=== PATIENT | male | born 1970 | race Caucasian/White ===

== ENCOUNTER 2016-12-05 03:12 | Inpatient (IN) | payer OTHER ==
[2016-12-05] VITALS (9 sets, daily range): BP systolic 117–134; BP diastolic 73–86; PULSE 57–70; RESP 18–20; Ht 167.6 cm; Wt 97.9 kg
[~2016-12-05] VITALS: Ht 167.6 cm; Wt 97.9 kg
[2016-12-05] MEDS ORDERED: FENTAnyl 50 MCG/ML VIAL ONE (07:56)
[2016-12-05] MEDS ORDERED: LISI10TA2 PO (08:16)
[2016-12-05] MEDS ORDERED: CARI350T29 PO (08:16)
[2016-12-05] MEDS ORDERED: GABA300C16 PO (08:16)
[2016-12-05] MEDS ORDERED: METF1000 PO (08:16)
[2016-12-05] MEDS ORDERED: KETO10TA PO (08:16)
[2016-12-05] MEDS ORDERED: AMO500 PO (08:16)
[2016-12-05] MEDS ORDERED: GLIM4TAB PO (08:16)
[2016-12-05] MEDS ORDERED: GLIP5TAB13 PO (08:16)
[2016-12-05] MEDS ORDERED: HYDR-902 PO (08:16)
[2016-12-05] MEDS ORDERED: PROPOFOL 20 ML ONE (08:41)
[2016-12-05] MEDS ORDERED: LIDOCAINE 2% (SDV) 5 ML INJ ONE (08:41)
[2016-12-05] MEDS ORDERED: ACETAMINOPHEN 325 MG TAB PO PRN (11:00)
[2016-12-05] MEDS ORDERED: MAGNESIUM HYDROXIDE 30ML CUP PO PRN (11:00)
[2016-12-05] MEDS ORDERED: BISACODYL 10 MG SUPP PR PRN (11:00)
[2016-12-05] MEDS ORDERED: HYDROCODONE/APAP (5/325) TAB PO PRN (11:00)
[2016-12-05] MEDS ORDERED: NITROGLYCERIN (SL) 0.4 MG TAB SL PRN (11:00)
[2016-12-05] MEDS ORDERED: ONDANSETRON 4 MG INJ IV PRN (11:00)
[2016-12-05] MEDS ORDERED: CARISOPRODOL 350 MG TAB PO PRN (11:00)
[2016-12-05] MEDS ORDERED: DOCUSATE SODIUM 100 MG CAP PO PRN (11:00)
[2016-12-05] MEDS ORDERED: NACL 0.9% 3 ML SYG IV SCH (11:00)
[2016-12-05] MEDS ORDERED: ACETAMINOPHEN 650 MG SUPP PR PRN (11:00)
[2016-12-05] MEDS ORDERED: DEXTROSE 50% 50 ML SYRINGE IV PRN ×2 (11:30)
[2016-12-05] MEDS ORDERED: GLUCAGON 1 MG INJ IM PRN (11:30)
[2016-12-05] MEDS ORDERED: GLUCOSE GEL 15 GRAM TUBE PO PRN ×2 (11:30)
[2016-12-05] MEDS ORDERED: GLUCOSE GEL 15 GRAM TUBE BUCCAL PRN (11:30)
[2016-12-05] MEDS: morphine 2 MG INJ IV PRN ×3 (11:34→21:53)
--- NOTE | 2016-12-05 11:59 | HP ---
Date/Time of Note Date/Time of Note DATE: 12/05/16 TIME: 11:49 Assessment/Plan VTE Prophylaxis VTE Prophylaxis Intervention: SCD's Assessment/Plan Chief Complaint/Hosp Course Impression and plan 1. Chest pain. Follow-up on serial troponins. Will get echocardiogram. We will also get radiologist consultation. Rule out ACS. Of note patient does also have history of rib fractures in the left. We will follow-up on x-ray. 2. History of rib fractures on the left work-related. He does follow-up with outpatient physician (workers comp) for this issue. Continue analgesics as needed. 3. Diabetes. Follow-up on A1c. Start insulin regimen. 4. History of dyslipidemia. Follow-up on fasting lipid panel. Admission process 40 minutes Discussed plan of care with Dr. Lara Problems: HPI/ROS Admit Date/Time Admit Date/Time Dec 05, 2016 at 06:41 Hx of Present Illness This is a 46-year-old male with history of diabetes, hypertension, who came to [facility] from outside facility due to insurance issue for reports of chest pain. According to the patient he started to have chest pain starting on December 03, 2016. He reported that it was pressure-like and intense and over his left chest with associated shortness of breath. Reported that his chest pain lasted all day. he said that the pain subsided when he went to sleep. The next day he reportedly had intermittent chest pain at 11 a.m. on December 04, 2016 when he was walking. He then rested and then still stated that he had chest pain on rest. He subsequently went to the hospital for further evaluation. Initial troponin done at [facility] was negative. Patient did report that he had previous work-related accident resulting in rib fractures 2 years ago however was not until 4 months ago he had surgery for this issue. He still follows up with a surgeon as outpatient for this issue and is on analgesics. From outside facility patient did have initial troponin drawn which was negative. He was noted with some transaminitis. He denies any abdominal pain. His drug tox screen was negative except for opiates. He also had some imaging done due to reports of headache with CT scan of his head that showed no acute intracranial findings. He denies any familial history of coronary artery disease. He denies any use of drugs for 5 years. He does report drinking once a month alcohol consumption. He denies any smoking. We will evaluate him for the aformentiond issues. ROS 12 point review of systems obtained and entirely negative except that mentioned in the history of present illness PMH/Family/Social Past Medical History Medical/surgical history 1. Diabetes 2. Essential hypertension 3. History of rib fracture on the left side status post surgical intervention 4 months ago Social History Smoking Status: Former smoker Exam/Review of Systems Vital Signs Vitals Vital Signs Date Time Temp Pulse Resp B/P Pulse Ox O2 Delivery O2 Flow Rate FiO2 12/05/16 11:41 98.2 67 19 134/82 97 12/05/16 07:11 Room Air Exam Constitutional: alert, oriented Psych: nl mood/affect Head: normocephalic Neck: non-tender, supple Respiratory: clear to auscultation, normal air movement Cardiovascular: regular rate and rhythm Gastrointestinal: non-tender, soft Musculoskeletal: nl extremities to inspection, nl gait and stance Extremities: normal pulses Neurological: EXCHANGE OPERATOR II-XII intact, nl mental status, nl speech Medications Medications Current Medications Carisoprodol (Soma) 350 mg QID PRN PO MUSCLE SPASMS; Start 12/05/16 at 11:00 Gabapentin (Neurontin) 300 mg TID PO ; Start 12/05/16 at 13:00 Lisinopril (Zestril) 10 mg DAILY PO ; Start 12/06/16 at 09:00 Ondansetron HCl (Zofran Inj) 4 mg Q6H PRN IV NAUSEA AND/OR VOMITING; Start 12/05 at 11:00 Acetaminophen (Tylenol Tab) 650 mg Q6H PRN PO PAIN LEVEL 1-3 OR FEVER; Start at 11:00 Acetaminophen (Tylenol Supp) 650 mg Q6H PRN [place] PAIN LEVEL 1-3 OR FEVER; Start 12/05/16 at 11:00 Acetaminophen/ Hydrocodone Bitart ([place] (5/325)) 1 tab Q6H PRN PO MODERATE PAIN LEVEL 4-6; Start 12/05/16 at 11:00 Acetaminophen/ Hydrocodone Bitart ([place]n (5/325)) 2 tab Q6H PRN PO SEVERE PAIN LEVEL 7-10; Start 12/05/16 at 11:00 Morphine Sulfate (morphine) 2 mg Q4H PRN IV SEVERE PAIN LEVEL 7-10 Last administered on 12/05/16t 11:34; Admin Dose 2 MG; Start 12/05/16 at 11:00 Docusate Sodium (Colace) 100 mg Q12H PRN PO CONSTIPATION; Start 12/05/16 at 11: 00 Magnesium Hydroxide (Milk Of Mag) 30 ml DAILY PRN PO CONSTIPATION; Start at 11:00 Bisacodyl (Dulcolax Supp) 10 mg DAILY PRN [place] CONSTIPATION; Start 12/05/16 at 11: 00 Pantoprazole (Protonix Iv) 40 mg DAILY@06 IV ; Start 12/06/16 at 06:00 Insulin Glargine (Lantus) 15 unit DAILY@08 SC ; Start 12/06/16 at 08:00 Aspirin (Aspirin) 81 mg DAILY PO ; Start 12/07/16 at 09:00 Metoprolol Tartrate (Lopressor) 12.5 mg BID PO ; Start 12/05/16 at 21:00 Nitroglycerin (Nitroglycerin (Sl Tab) 0.4 Mg) 1 tab Q5M PRN SL CHEST PAIN; Start 12/05/16 at 11:00 Diagnostic Test (Pha) (Accu-Chek) 1 ea 02 XX ; Start 12/06/16 at 02:00 Miscellaneous Information 1 ea NOTE XX ; Start 12/05/16 at 11:30 Glucose (Glutose) 15 gm Q15M PRN PO DECREASED GLUCOSE; Start 12/05/16 at 11:30 Glucose (Glutose) 22.5 gm Q15M PRN PO DECREASED GLUCOSE; Start 12/05/16 at 11:30 Dextrose (D50w Syringe) 25 ml Q15M PRN IV DECREASED GLUCOSE; Start 12/05/16 at 11:30 Dextrose (D50w Syringe) 50 ml Q15M PRN IV DECREASED GLUCOSE; Start 12/05/16 at 11:30 Glucagon (Glucagen) 1 mg Q15M PRN IM DECREASED GLUCOSE; Start 12/05/16 at 11:30 Glucose (Glutose) 15 gm Q15M PRN BUCCAL DECREASED GLUCOSE; Start 12/05/16 at 11: 30 MARIA DEL CARMEN MATHEW Dec 05, 2016 11:59
[2016-12-05] MEDS: INSULIN ASPART [NOVOLOG] 3 ML PEN SC SCH ×5 (12:39→20:31)
[2016-12-05] MEDS: GABAPENTIN 300 MG CAP PO SCH ×2 (12:41→20:28)
[2016-12-05 12:44] LABS: CREATINE KINASE 85 IU/L (23-200)
[2016-12-05] MEDS: ASPIRIN 81 MG TAB PO SCH (12:58)
[2016-12-05 13:00] LABS: CK-MB 0.57 ng/ml (0.0-2.4); TROPONIN-I < 0.012 ng/ml (0.00-0.12)
[2016-12-05 17:36] LABS: CREATINE KINASE 89 IU/L (23-200)
[2016-12-05 17:59] LABS: CK-MB 0.59 ng/ml (0.0-2.4); TROPONIN-I < 0.012 ng/ml (0.00-0.12)
[2016-12-05] MEDS: METOPROLOL 25 MG TAB PO SCH (20:29)
[2016-12-06] VITALS (11 sets, daily range): BP systolic 105–132; BP diastolic 64–84; PULSE 52–89; RESP 18–20
[2016-12-06] MEDS: morphine 2 MG INJ IV PRN ×5 (01:58→21:40)
[2016-12-06] MEDS: ACCU-CHEK XX SCH (02:00)
[2016-12-06] MEDS ORDERED: ACCU-CHEK XX SCH (02:00)
[2016-12-06] MEDS: PANTOPRAZOLE 40 MG INJ IV SCH (05:15)
[2016-12-06 07:25] LABS: ALBUMIN 3.8 g/dl (3.3-4.9); ALBUMIN/GLOBULIN RATIO 1.05; BILIRUBIN,INDIRECT 0.6 mg/dl (0-1.1); BILIRUBIN,TOTAL 0.6 mg/dl (0.2-1.3); CHOL/HDL RATIO 5.6 RATIO; CREATININE 0.89 mg/dl (0.61-1.24); MAGNESIUM 1.7 mg/dl (1.7-2.5); PHOSPHORUS 4.1 mg/dl (2.5-4.9); POTASSIUM 4.2 mmol/L (3.5-5.1); TOTAL PROTEIN 7.4 g/dl (6.1-8.1)
[2016-12-06 07:40] LABS: T3 UPTAKE 36.1 % (23.5-40.5)
[2016-12-06 07:54] LABS: THYROID STIMULATING HORMONE 0.845 MIU/L (0.465-4.680)
[2016-12-06] MEDS: GABAPENTIN 300 MG CAP PO SCH ×3 (08:17→21:52)
[2016-12-06] MEDS: ASPIRIN 81 MG TAB PO SCH (08:18)
[2016-12-06] MEDS: LISINOPRIL 10 MG TAB PO SCH (08:18)
[2016-12-06] MEDS: METOPROLOL 25 MG TAB PO SCH ×2 (08:18→21:53)
[2016-12-06] MEDS: INSULIN GLARGINE [LANtus] 3 ML PEN SC SCH (08:24)
[2016-12-06] MEDS: INSULIN ASPART [NOVOLOG] 3 ML PEN SC SCH ×7 (08:25→21:57)
[2016-12-06 13:46] LABS: CREATINE KINASE 82 IU/L (23-200)
[2016-12-06 14:02] LABS: TROPONIN-I < 0.012 ng/ml (0.00-0.12)
--- NOTE | 2016-12-06 16:06 | PN ---
Date/Time of Note Date/Time of Note DATE: 12/06/16 TIME: 16:05 Assessment/Plan VTE Prophylaxis VTE Prophylaxis Intervention: LMWH Lines/Catheters IV [facility] (from [facility] Saline Lock Assessment/Plan Chief Complaint/Hosp Course 1. Chest pain. Most probably musculoskeletal origin from recent rib fracture. Serial troponins have been negative. Pending 2D echocardiogram. Pending cardiology evaluation. 2. Type 2 diabetes mellitus. Hemoglobin A1c 6.8. Continue sliding scale insulin. 3. Dyslipidemia. Low-cholesterol diet. 4. Hypertension. Continue antihypertensives. 5. Obesity. BMI of 34.8 kg/m. Weight reduction advised. 6. Left rib cage pain secondary to reported work-related injury. Continue pain control. 7. Fluids, electrolytes, and nutrition. Carbohydrate controlled, low- cholesterol diet. 8. DVT prophylaxis. Subcutaneous Lovenox. 9. Gastrointestinal prophylaxis. Proton pump inhibitors. 10. Plan. Serial troponins have been negative. Pending 2D echocardiogram. The patient very adamant that he wants cardiology to evaluate him. Cardiology consult has already been called on 12/05/2016. Pending cardiology evaluation. Case discussed with Dr. Otero. Problems: Subjective 24 Hr Interval Summary Free Text/Dictation Continues to have left chest wall pain. Exam/Review of Systems Vital Signs Vitals Vital Signs Date Time Temp Pulse Resp B/P Pulse Ox O2 Delivery O2 Flow Rate FiO2 12/06/16 15:41 97.4 63 19 112/70 96 12/06/16 11:12 Room Air Intake and Output 12/05/16 12/05/16 12/06/16 14:59 22:59 06:59 Intake Total 900 ml 700 ml Output Total 800 ml Balance 100 ml 700 ml Exam General: Adequately build 46 year-old male lying in bed in no apparent distress. HEENT: Normocephalic, atraumatic. Eyes: Anicteric sclerae, conjunctivae clear. ENT: Nasal septum midline, oral mucosa moist. Neck supple, no JVD noticed. Respiratory: Bilaterally clear breath sounds. No use of accessory muscles of respiration. No adventitious breath sounds. Cardiovascular: S1, S2 heard. No murmurs or gallops. Abdomen: Soft, nontender, and nondistended. Bowel sounds positive in all 4 quadrants. Genitourinary: Deferred. Extremities: No cyanosis, no clubbing, no edema. Peripheral pulses palpable. Neurologic: Cranial nerves II through XII grossly intact. The patient is awake, alert, and oriented. Skin: Normal skin turgor. No skin rashes. Results Result Diagram: 12/06/1631 Results 24 hrs Laboratory Tests Test 12/05/16 17:00 12/05/16 17:48 12/05/16 20:16 12/06/16 06:31 Creatine Kinase 89 Creatine Kinase Index 0.7 Creatinine Kinase MB (Mass) 0.59 Troponin I < 0.012 Bedside Glucose 121 201 Sodium Level 139 Potassium Level 4.2 Chloride Level 103 Carbon Dioxide Level 26 Anion Gap 14 Blood Urea Nitrogen 20 Creatinine 0.89 Glucose Level 152 Hemoglobin A1c 6.8 H Calcium Level 9.0 Phosphorus Level 4.1 Magnesium Level 1.7 Total Bilirubin 0.6 Direct Bilirubin 0.00 Indirect Bilirubin 0.6 Aspartate Amino Transf (AST/SGOT) 45 Alanine Aminotransferase (ALT/SGPT) 75 H Alkaline Phosphatase 59 Total Protein 7.4 Albumin 3.8 Globulin 3.60 H Albumin/Globulin Ratio 1.05 Triglycerides Level 160 H Cholesterol Level 148 LDL Cholesterol, Calculated 90 HDL Cholesterol 26 L Cholesterol/HDL Ratio 5.6 Thyroid Stimulating Hormone (TSH) 0.845 Free Thyroxine Index 2.82 Thyroxine (T4) 7.8 Triiodothyronine (T3) Uptake 36.1 Test 12/06/16 08:09 12/06/16 11:48 12/06/16 12:53 Bedside Glucose 162 180 Creatine Kinase 82 Creatine Kinase Index 0.7 Creatinine Kinase MB (Mass) 0.60 Troponin I < 0.012 Medications Medications Current Medications Carisoprodol (Soma) 350 mg QID PRN PO MUSCLE SPASMS; Start 12/05/16 at 11:00 Gabapentin (Neurontin) 300 mg TID PO Last administered on 12/06/16 12:03; Admin Dose 300 MG; Start 12/05/16 at 13:00 Lisinopril (Zestril) 10 mg DAILY PO Last administered on 12/06/16 08:18; Admin Dose 10 MG; Start 12/06/16 at 09:00 Ondansetron HCl (Zofran Inj) 4 mg Q6H PRN IV NAUSEA AND/OR VOMITING; Start 12/05 at 11:00 Acetaminophen (Tylenol Tab) 650 mg Q6H PRN PO PAIN LEVEL 1-3 OR FEVER; Start at 11:00 Acetaminophen (Tylenol Supp) [address] PAIN LEVEL 1-3 OR FEVER; Start 12/05/16 at 11:00 Acetaminophen/ Hydrocodone Bitart (Weld (5/325)) 1 tab Q6H PRN PO MODERATE PAIN LEVEL 4-6; Start 12/05/16 at 11:00 Acetaminophen/ Hydrocodone Bitart ([place]eld (5/325)) 2 tab Q6H PRN PO SEVERE PAIN LEVEL 7-10; Start 12/05/16 at 11:00 Morphine Sulfate (morphine) 2 mg Q4H PRN IV SEVERE PAIN LEVEL 7-10 Last administered on 12/06/16 14:35; Admin Dose 2 MG; Start 12/05/16 at 11:00 Docusate Sodium (Colace) 100 mg Q12H PRN PO CONSTIPATION; Start 12/05/16 at 11: 00 Magnesium Hydroxide (Milk Of Mag) 30 ml DAILY PRN PO CONSTIPATION; Start at 11:00 Bisacodyl (Dulcolax Supp) [address] CONSTIPATION; Start 12/05/16 at 11: 00 Pantoprazole (Protonix Iv) 40 mg DAILY@06 IV Last administered on 12/06/16 05: 15; Admin Dose 40 MG; Start 12/06/16 at 06:00 Insulin Glargine (Lantus) 15 unit DAILY@08 SC Last administered on 12/06/16 08: 24; Admin Dose 15 UNIT; Start 12/06/16 at 08:00 Metoprolol Tartrate (Lopressor) 12.5 mg BID PO Last administered on 12/06/16 08 :18; Admin Dose 12.5 MG; Start 12/05/16 at 21:00 Nitroglycerin (Nitroglycerin (Sl Tab) 0.4 Mg) 1 tab Q5M PRN SL CHEST PAIN; Start 12/05/16 at 11:00 Diagnostic Test (Pha) (Accu-Chek) 1 ea 02 XX ; Start 12/06/16 at 02:00 Miscellaneous Information 1 ea NOTE XX ; Start 12/05/16 at 11:30 Glucose (Glutose) 15 gm Q15M PRN PO DECREASED GLUCOSE; Start 12/05/16 at 11:30 Glucose (Glutose) 22.5 gm Q15M PRN PO DECREASED GLUCOSE; Start 12/05/16 at 11:30 Dextrose (D50w Syringe) 25 ml Q15M PRN IV DECREASED GLUCOSE; Start 12/05/16 at 11:30 Dextrose (D50w Syringe) 50 ml Q15M PRN IV DECREASED GLUCOSE; Start 12/05/16 at 11:30 Glucagon (Glucagen) 1 mg Q15M PRN IM DECREASED GLUCOSE; Start 12/05/16 at 11:30 Glucose (Glutose) 15 gm Q15M PRN BUCCAL DECREASED GLUCOSE; Start 12/05/16 at 11: 30 Aspirin (Aspirin) 81 mg DAILY PO Last administered on 12/06/16 08:18; Admin Dose 81 MG; Start 12/05/16 at 12:40 ERVIN RICE NP Dec 06, 2016 16:06
[2016-12-07] VITALS (12 sets, daily range): BP systolic 99–121; BP diastolic 61–84; PULSE 56–69; RESP 18–20
[2016-12-07] MEDS: morphine 2 MG INJ IV PRN ×6 (02:14→22:30)
[2016-12-07] MEDS: ACCU-CHEK XX SCH (02:16)
[2016-12-07] MEDS: PANTOPRAZOLE 40 MG INJ IV SCH (05:47)
[2016-12-07] MEDS: INSULIN GLARGINE [LANtus] 3 ML PEN SC SCH (07:43)
[2016-12-07] MEDS: INSULIN ASPART [NOVOLOG] 3 ML PEN SC SCH ×7 (07:44→22:08)
[2016-12-07 07:52] LABS: BASOPHIL # 0.1 10^3/ul (0.0-0.1); BASOPHILS % 1.2 % (0.0-2.0); EOSINOPHILS # 0.4 10^3/ul (0.0-0.5); EOSINOPHILS % 6.2 % (0.0-7.0); HEMATOCRIT 36.4 % (42.0-52.0); HEMOGLOBIN 12.7 g/dl (14.0-18.0); LYMPHOCYTES # 2.4 10^3/ul (0.8-2.9); LYMPHOCYTES % 37.5 % (15.0-51.0); MEAN CORPUSCULAR HEMOGLOBIN 31.3 pg (29.0-33.0); MEAN CORPUSCULAR HGB CONC 34.9 g/dl (32.0-37.0); MEAN CORPUSCULAR VOLUME 89.7 fl (82.0-101.0); MEAN PLATELET VOLUME 11.5 fl (7.4-10.4); MONOCYTE # 0.7 10^3/ul (0.3-0.9); MONOCYTES % 10.3 % (0.0-11.0); NEUTROPHILS % 43.7 % (39.0-77.0); PLATELET COUNT 223 10^3/UL (140-415); RED BLOOD COUNT 4.06 10^6/ul (4.70-6.10); RED CELL DISTRIBUTION WIDTH 12.4 % (11.5-14.5); WHITE BLOOD COUNT 6.5 10^3/ul (4.8-10.8)
[2016-12-07] MEDS: GABAPENTIN 300 MG CAP PO SCH ×3 (08:21→22:00)
[2016-12-07] MEDS: ASPIRIN 81 MG TAB PO SCH (08:21)
[2016-12-07] MEDS: LISINOPRIL 10 MG TAB PO SCH (08:21)
[2016-12-07] MEDS: METOPROLOL 25 MG TAB PO SCH ×2 (08:22→22:02)
[2016-12-07 08:24] LABS: MAGNESIUM 1.5 mg/dl (1.7-2.5); PHOSPHORUS 4.4 mg/dl (2.5-4.9)
[2016-12-07] MEDS: ENOXAPARIN 40 MG/0.4 ML SYG SC SCH (08:24)
[2016-12-07 08:33] LABS: CALCIUM 8.7 mg/dl (8.4-10.2); CREATININE 0.8 mg/dl (0.61-1.24); POTASSIUM 4.2 mmol/L (3.5-5.1)
[2016-12-07] MEDS ORDERED: ASPIRIN 81 MG TAB PO SCH (09:00)
[2016-12-07] MEDS ORDERED: MAGNESIUM SULFATE 2 GM/50 ML 50 ML IVPB ONE (09:30)
--- NOTE | 2016-12-07 10:46 | PN ---
Date/Time of Note Date/Time of Note DATE: 12/07/16 TIME: 10:45 Assessment/Plan VTE Prophylaxis VTE Prophylaxis Intervention: LMWH Lines/Catheters IV Catheter Type (from [facility]): Saline Lock Assessment/Plan Chief Complaint/Hosp Course 1. Chest pain. Most probably musculoskeletal origin from recent rib fracture. Serial troponins have been negative. Pending 2D echocardiogram. Pending cardiology evaluation. 2. Type 2 diabetes mellitus. Hemoglobin A1c 6.8. Continue sliding scale insulin. 3. Dyslipidemia. Low-cholesterol diet. 4. Hypertension. Continue antihypertensives. 5. Obesity. BMI of 34.8 kg/m. Weight reduction advised. 6. Left rib cage pain secondary to reported work-related injury that required multiple surgeries in the past. Continue pain control. 7. Fluids, electrolytes, and nutrition. Carbohydrate controlled, low- cholesterol diet. 8. DVT prophylaxis. Subcutaneous Lovenox. 9. Gastrointestinal prophylaxis. Proton pump inhibitors. 10. Plan. Serial troponins have been negative. Pending 2D echocardiogram. The patient very adamant that he wants cardiology to evaluate him. Cardiology consult has already been called on 12/05/2016. Pending cardiology evaluation. Case discussed with Dr. Otero. Problems: Subjective 24 Hr Interval Summary Free Text/Dictation Continues to have left rib cage pain. Exam/Review of Systems Vital Signs Vitals Vital Signs Date Time Temp Pulse Resp B/P Pulse Ox O2 Delivery O2 Flow Rate FiO2 12/07/16 08:06 60 12/07/16 07:53 98.0 18 113/67 98 12/06/16 11:12 Room Air Intake and Output 12/06/16 12/06/16 12/07/16 15:00 23:00 07:00 Intake Total 750 ml 500 ml Balance 750 ml 500 ml Exam General: Adequately build 46 year-old male lying in bed in no apparent distress. HEENT: Normocephalic, atraumatic. Eyes: Anicteric sclerae, conjunctivae clear. ENT: Nasal septum midline, oral mucosa moist. Neck supple, no JVD noticed. Respiratory: Bilaterally clear breath sounds. No use of accessory muscles of respiration. No adventitious breath sounds. Cardiovascular: S1, S2 heard. No murmurs or gallops. Abdomen: Soft, nontender, and nondistended. Bowel sounds positive in all 4 quadrants. Genitourinary: Deferred. Extremities: No cyanosis, no clubbing, no edema. Peripheral pulses palpable. Neurologic: Cranial nerves II through XII grossly intact. The patient is awake, alert, and oriented. Skin: Normal skin turgor. No skin rashes. Results Result Diagram: 12/07/16 0655 12/07/16 0655 Results 24 hrs Laboratory Tests Test 12/06/16 11:48 12/06/16 12:53 12/06/16 17:45 12/06/16 21:52 Bedside Glucose 180 214 215 Creatine Kinase 82 Creatine Kinase Index 0.7 Creatinine Kinase MB (Mass) 0.60 Troponin I < 0.012 Test 12/07/16 02:15 12/07/16 06:55 12/07/16 07:39 Bedside Glucose 174 187 White Blood Count 6.5 Red Blood Count 4.06 L Hemoglobin 12.7 L Hematocrit 36.4 L Mean Corpuscular Volume 89.7 Mean Corpuscular Hemoglobin 31.3 Mean Corpuscular Hemoglobin Concent 34.9 Red Cell Distribution Width 12.4 Platelet Count 223 Mean Platelet Volume 11.5 H Neutrophils % 43.7 Lymphocytes % 37.5 Monocytes % 10.3 Eosinophils % 6.2 Basophils % 1.2 Nucleated Red Blood Cells % 0.0 Neutrophils # (Manual) 2.8 Lymphocytes # 2.4 Monocytes # 0.7 Eosinophils # 0.4 Basophils # 0.1 Nucleated Red Blood Cells # 0.0 Sodium Level 136 Potassium Level 4.2 Chloride Level 101 Carbon Dioxide Level 26 Anion Gap 13 Blood Urea Nitrogen 17 Creatinine 0.80 Glucose Level 181 Calcium Level 8.7 Phosphorus Level 4.4 Magnesium Level 1.5 L Medications Medications Current Medications Carisoprodol (Soma) 350 mg QID PRN PO MUSCLE SPASMS; Start 12/05/16 at 11:00 Gabapentin (Neurontin) 300 mg TID PO Last administered on 12/07/16 08:21; Admin Dose 300 MG; Start 12/05/16 at 13:00 Lisinopril (Zestril) 10 mg DAILY PO Last administered on 12/07/16 08:21; Admin Dose 10 MG; Start 12/06/16 at 09:00 Ondansetron HCl (Zofran Inj) 4 mg Q6H PRN IV NAUSEA AND/OR VOMITING; Start 12/05 at 11:00 Acetaminophen (Tylenol Tab) 650 mg Q6H PRN PO PAIN LEVEL 1-3 OR FEVER; Start at 11:00 Acetaminophen (Tylenol Supp) 650 mg Q6H PRN [place] PAIN LEVEL 1-3 OR FEVER; Start 12/05/16 at 11:00 Acetaminophen/ Hydrocodone Bitart ([place]aisy (5/325)) 1 tab Q6H PRN PO MODERATE PAIN LEVEL 4-6; Start 12/05/16 at 11:00 Acetaminophen/ Hydrocodone Bitart ([place]aisy (5/325)) 2 tab Q6H PRN PO SEVERE PAIN LEVEL 7-10; Start 12/05/16 at 11:00 Morphine Sulfate (morphine) 2 mg Q4H PRN IV SEVERE PAIN LEVEL 7-10 Last administered on 12/07/16 10:19; Admin Dose 2 MG; Start 12/05/16 at 11:00 Docusate Sodium (Colace) 100 mg Q12H PRN PO CONSTIPATION; Start 12/05/16 at 11: 00 Magnesium Hydroxide (Milk Of Mag) 30 ml DAILY PRN PO CONSTIPATION; Start at 11:00 Bisacodyl (Dulcolax Supp) 10 mg DAILY PRN [place] CONSTIPATION; Start 12/05/16 at 11: 00 Pantoprazole (Protonix Iv) 40 mg DAILY@06 IV Last administered on 12/07/16 05: 47; Admin Dose 40 MG; Start 12/06/16 at 06:00 Insulin Glargine (Lantus) 15 unit DAILY@08 SC Last administered on 12/07/16 07: 43; Admin Dose 15 UNIT; Start 12/06/16 at 08:00 Metoprolol Tartrate (Lopressor) 12.5 mg BID PO Last administered on 12/07/16 08 :22; Admin Dose 12.5 MG; Start 12/05/16 at 21:00 Nitroglycerin (Nitroglycerin (Sl Tab) 0.4 Mg) 1 tab Q5M PRN SL CHEST PAIN; Start 12/05/16 at 11:00 Diagnostic Test (Pha) (Accu-Chek) 1 ea 02 XX Last administered on 12/07/16 02: 16; Admin Dose 1 EA; Start 12/06/16 at 02:00 Miscellaneous Information 1 ea NOTE XX ; Start 12/05/16 at 11:30 Glucose (Glutose) 15 gm Q15M PRN PO DECREASED GLUCOSE; Start 12/05/16 at 11:30 Glucose (Glutose) 22.5 gm Q15M PRN PO DECREASED GLUCOSE; Start 12/05/16 at 11:30 Dextrose (D50w Syringe) 25 ml Q15M PRN IV DECREASED GLUCOSE; Start 12/05/16 at 11:30 Dextrose (D50w Syringe) 50 ml Q15M PRN IV DECREASED GLUCOSE; Start 12/05/16 at 11:30 Glucagon (Glucagen) 1 mg Q15M PRN IM DECREASED GLUCOSE; Start 12/05/16 at 11:30 Glucose (Glutose) 15 gm Q15M PRN BUCCAL DECREASED GLUCOSE; Start 12/05/16 at 11: 30 Aspirin (Aspirin) 81 mg DAILY PO Last administered on 12/07/16 08:21; Admin Dose 81 MG; Start 12/05/16 at 12:40 Enoxaparin Sodium 40 mg 40 mg DAILY SC Last administered on 12/07/16 08:24; Admin Dose 40 MG; Start 12/07/16 at 09:00 Magnesium Sulfate (Magnesium Sulfate 2 Gm/50 ml) 50 ml @ 25 mls/hr ONCE ONCE IVPB Last administered on 12/07/16 10:19; Admin Dose 25 MLS/HR; Start 12/07/16 at 09:30; Stop 12/07/16 at 11:29 ERVIN RICE NP Dec 07, 2016 10:46
--- NOTE | 2016-12-07 13:38 | RADRPT ---
PROCEDURE: Chest Radiograph. CLINICAL INDICATION: Cough TECHNIQUE: Single frontal chest radiograph. COMPARISON: None available FINDINGS: The cardiomediastinal silhouette is within normal limits. There is mild left basilar atelectasis. N o infiltrate or effusion is seen. The bones are intact. IMPRESSION: 1. Mild left basilar atelectasis. 2. No other evidence of acute cardiopulmonary disease. RPTAT: KK .Kaiser Redmond MD, MD Date Time Electronically viewed and signed by .Kaiser Redmond MD, MD on 12/07/2016 13:37 .B/
--- NOTE | 2016-12-07 13:39 | RADRPT ---
Echocardiogram Report Patient Name: BRENDA BAJWA Gender: Male Date: 1970 Study Date: 06-Dec-2016 Molding Supervisor: Sonal Pang [facility] Location: [id number] Ref. Physician: MARIA DEL CARMEN MATHEW Quality: Adequate Procedures: Transthoracic echocardiogram with complete 2D, M-Mode, and doppler examination. Indications: Chest Pain. 2D/M Mode Doppler Measurement Value Normal Ranges Measurement Value Normal Ranges LVIDd 2D 4.9 3.5 - 5.6 cm AV Peak Steve 1.1 m/sec LVIDs 2D 3.0 2.1 - 4.1 cm AV Peak PG 5.0 mmHg FS 2D 39.8 % LVOT Peak Steve 0.8 m/sec LVPWd 2D 1.0 0.6 - 1.1 cm LVOT Peak PG 3.0 mmHg IVSd 2D 1.1 0.6 - 1.1 cm MV E Peak Steve 0.5 m/sec IVS/LVPW 2D 1.1 MV A Peak Steve 0.6 m/sec AoR Diam 2D 3.2 2.0 - 3.7 cm MV E/A 0.8 LA/Ao 2D 1 0 - 1 MV Decel Time 204 msec EDV 2D 119.0 cm3 MV E/A 0.8 ESV 2D 25.9 cm3 TR Peak Steve 2.5 m/sec LA Dimen 2D 3.4 2.3 - 4.0 cm TR Peak PG 24.0 mmHg RVSP 27.0 mmHg Findings Left Ventricle: Lower limits of normal systolic function. Normal left ventricular cavity size. Mild concentric left ventricular hypertrophy. Ejection fraction is visually estimated at 50 %. Tissue Doppler/Mitral Doppler indices are consistent with impaired relaxation (Stage I diastolic dysfunction). Right Ventricle: Normal right ventricular size. Normal right ventricular systolic function. Left Atrium: The left atrium is normal in size. Right Atrium: The right atrium is normal in size. Mitral Valve: Normal appearance and function of the mitral valve with trace physiologic regurgitation. Aortic Valve: No significant aortic stenosis or insufficiency. Aortic cusps appear mildly calcified. Tricuspid Valve: Normal appearance of the tricuspid valve. Estimated peak PA systolic pressure 27 mmHg. There is trace tricuspid regurgitation. Pulmonic Valve: Pulmonic valve not well visualized. Pericardium: Normal pericardium with no significant pericardial effusion. Aorta: Normal aortic root. IVC: Normal size and normal respiratory collapse consistent with normal right atrial pressure. Conclusions 1.Lower limits of normal systolic function. Normal left ventricular cavity size. Mild concentric left ventricular hypertrophy. Ejection fraction is visually estimated at 50 %. Tissue Doppler/Mitral Doppler indices are consistent with impaired relaxation (Stage I diastolic dysfunction). 2.Normal appearance and function of the mitral valve with trace physiologic regurgitation. 3.Normal appearance of the tricuspid valve. Estimated peak PA systolic pressure 27 mmHg. There is trace tricuspid regurgitation. Electronically Signed By: Zion Bianchi 07-Dec-2016 13:37:50 -0700 Patient Name: BRENDA BAJWA Study Date: 06-Dec-2016 [id number]
--- NOTE | 2016-12-07 20:16 | CONS ---
Date/Time of Note Date/Time of Note DATE: 12/07/16 TIME: 19:31 Assessment/Plan Assessment/Plan Chief Complaint/Hosp Course HPI/ROS Admit Date/Time Admit Date/Time Dec 05, 2016 at 06:41 Hx of Present Illness This is a 46-year-old male with history of diabetes, hypertension, who came to [facility] from outside facility due to insurance issue for reports of chest pain. According to the patient he started to have chest pain starting on December 03, 2016. He reported that it was pressure-like and intense and over his left chest with associated shortness of breath. Reported that his chest pain lasted all day. he said that the pain subsided when he went to sleep. The next day he reportedly had intermittent chest pain at 11 a.m. on December 04, 2016 when he was walking. He then rested and then still stated that he had chest pain on rest. He subsequently went to the hospital for further evaluation. Initial troponin done at [facility] was negative. Patient did report that he had previous work-related accident resulting in rib fractures 2 years ago however was not until 4 months ago he had surgery for this issue. He still follows up with a surgeon as outpatient for this issue and is on analgesics. From outside facility patient did have initial troponin drawn which was negative. He was noted with some transaminitis. He denies any abdominal pain. His drug tox screen was negative except for opiates. He also had some imaging done due to reports of headache with CT scan of his head that showed no acute intracranial findings. He denies any familial history of coronary artery disease. He denies any use of drugs for 5 years. He does report drinking once a month alcohol consumption. He denies any smoking. We will evaluate him for the aformentiond issues. ROS 12 point review of systems obtained and entirely negative except that mentioned in the history of present illness PMH/Family/Social Past Medical History Medical/surgical history 1. Diabetes 2. Essential hypertension 3. History of rib fracture on the left side status post surgical intervention 4 months ago Social History Smoking Status: Former smoker Problems: Additional Assessment/Plan Exam/Review of Systems Vital Signs Vitals Vital Signs Date Time Temp Pulse Resp B/P Pulse Ox O2 Delivery O2 Flow Rate FiO2 12/05/16 11:41 98.2 67 19 134/82 97 12/05/16 07:11 Room Air Exam Constitutional: alert, oriented Psych: nl mood/affect Head: normocephalic Neck: non-tender, supple Respiratory: clear to auscultation, normal air movement Cardiovascular: regular rate and rhythm Gastrointestinal: non-tender, soft Musculoskeletal: nl extremities to inspection, nl gait and stance Extremities: normal pulses Neurological: AIR[employer]ENT II-XII intact, nl mental status, nl speech Medications Medications Current Medications Carisoprodol (Soma) 350 mg QID PRN PO MUSCLE SPASMS; Start 12/05/16 at 11:00 Gabapentin (Neurontin) 300 mg TID PO ; Start 12/05/16 at 13:00 Lisinopril (Zestril) 10 mg DAILY PO ; Start 12/06/16 at 09:00 Ondansetron HCl (Zofran Inj) 4 mg Q6H PRN IV NAUSEA AND/OR VOMITING; Start 12/05 at 11:00 Acetaminophen (Tylenol Tab) 650 mg Q6H PRN PO PAIN LEVEL 1-3 OR FEVER; Start at 11:00 Acetaminophen (Tylenol Supp) 650 mg Q6H PRN MA PAIN LEVEL 1-3 OR FEVER; Start 12/05/16 at 11:00 Acetaminophen/ Hydrocodone Bitart ([place] (5/325)) 1 tab Q6H PRN PO MODERATE PAIN LEVEL 4-6; Start 12/05/16 at 11:00 Acetaminophen/ Hydrocodone Bitart ([place] (5/325)) 2 tab Q6H PRN PO SEVERE PAIN LEVEL 7-10; Start 12/05/16 at 11:00 Morphine Sulfate (morphine) 2 mg Q4H PRN IV SEVERE PAIN LEVEL 7-10 Last administered on 12/05/16t 11:34; Admin Dose 2 MG; Start 12/05/16 at 11:00 Docusate Sodium (Colace) 100 mg Q12H PRN PO CONSTIPATION; Start 12/05/16 at 11: 00 Magnesium Hydroxide (Milk Of Mag) 30 ml DAILY PRN PO CONSTIPATION; Start at 11:00 Bisacodyl (Dulcolax Supp) 10 mg DAILY PRN MA CONSTIPATION; Start 12/05/16 at 11: 00 Pantoprazole (Protonix Iv) 40 mg DAILY@06 IV ; Start 12/06/16 at 06:00 Insulin Glargine (Lantus) 15 unit DAILY@08 SC ; Start 12/06/16 at 08:00 Aspirin (Aspirin) 81 mg DAILY PO ; Start 12/07/16 at 09:00 Metoprolol Tartrate (Lopressor) 12.5 mg BID PO ; Start 12/05/16 at 21:00 Nitroglycerin (Nitroglycerin (Sl Tab) 0.4 Mg) 1 tab Q5M PRN SL CHEST PAIN; Start 12/05/16 at 11:00 Diagnostic Test (Pha) (Accu-Chek) 1 ea 02 XX ; Start 12/06/16 at 02:00 Miscellaneous Information 1 ea NOTE XX ; Start 12/05/16 at 11:30 Glucose (Glutose) 15 gm Q15M PRN PO DECREASED GLUCOSE; Start 12/05/16 at 11:30 Glucose (Glutose) 22.5 gm Q15M PRN PO DECREASED GLUCOSE; Start 12/05/16 at 11:30 Dextrose (D50w Syringe) 25 ml Q15M PRN IV DECREASED GLUCOSE; Start 12/05/16 at 11:30 Dextrose (D50w Syringe) 50 ml Q15M PRN IV DECREASED GLUCOSE; Start 12/05/16 at 11:30 Glucagon (Glucagen) 1 mg Q15M PRN IM DECREASED GLUCOSE; Start 12/05/16 at 11:30 Glucose (Glutose) 15 gm Q15M PRN BUCCAL DECREASED GLUCOSE; Start 12/05/16 at 11: 30 BNP Results 72 Hours Test 12/05/16 12:00 12/05/16 12:30 12/05/16 13:02 12/05/16 17:00 Creatine Kinase 85IU/L (23-200) 89IU/L (23-200) Creatine Kinase Index 0.7 0.7 Creatinine Kinase MB (Mass) 0.57ng/ml (0.0-2.4) 0.59ng/ml (0.0-2.4) Troponin I < 0.012ng/ml (0.00-0.12) < 0.012ng/ml (0.00-0.12) Bedside Glucose 149mg/dL (70-220) Hemoglobin A1c 6.9% (0-5.9) H Test 12/05/16 17:48 12/05/16 20:16 12/06/16 06:31 12/06/16 08:09 Bedside Glucose 121mg/dL (70-220) 201mg/dL (70-220) 162mg/dL (70-220) Sodium Level 139mmol/L (135-144) Potassium Level 4.2mmol/L (3.5-5.1) Chloride Level 103mmol/L (97-110) Carbon Dioxide Level 26mmol/L (21-31) Anion Gap 14 (8-16) Blood Urea Nitrogen 20mg/dl (7-20) Creatinine 0.89mg/dl (0.61-1.24) Glucose Level 152mg/dl (70-220) Hemoglobin A1c 6.8% (0-5.9) H Calcium Level 9.0mg/dl (8.4-10.2) Phosphorus Level 4.1mg/dl (2.5-4.9) Magnesium Level 1.7mg/dl (1.7-2.5) Total Bilirubin 0.6mg/dl (0.2-1.3) Direct Bilirubin 0.00mg/dl (0.00-0.20) Indirect Bilirubin 0.6mg/dl (0-1.1) Aspartate Amino Transf (AST/SGOT) 45IU/L (15-46) Alanine Aminotransferase (ALT/SGPT) 75IU/L (13-69) H Alkaline Phosphatase 59IU/L (42-121) Total Protein 7.4g/dl (6.1-8.1) Albumin 3.8g/dl (3.3-4.9) Globulin 3.60g/dl (1.3-3.2) H Albumin/Globulin Ratio 1.05 Triglycerides Level 160mg/dl (0-149) H Cholesterol Level 148mg/dl (100-200) LDL Cholesterol, Calculated 90mg/dl HDL Cholesterol 26mg/dl (27-67) L Cholesterol/HDL Ratio 5.6RATIO Thyroid Stimulating Hormone (TSH) 0.845MIU/L (0.465-4.680) Free Thyroxine Index 2.82ug/ml (0.65-3.89) Thyroxine (T4) 7.8ug/dl (5.5-11.0) Triiodothyronine (T3) Uptake 36.1% (23.5-40.5) Test 12/06/16 11:48 12/06/16 12:53 12/06/16 17:45 12/06/16 21:52 Bedside Glucose 180mg/dL (70-220) 214mg/dL (70-220) 215mg/dL (70-220) Creatine Kinase 82IU/L (23-200) Creatine Kinase Index 0.7 Creatinine Kinase MB (Mass) 0.60ng/ml (0.0-2.4) Troponin I < 0.012ng/ml (0.00-0.12) Test 12/07/16 02:15 12/07/16 06:55 12/07/16 07:39 12/07/16 12:09 Bedside Glucose 174mg/dL (70-220) 187mg/dL (70-220) 163mg/dL (70-220) Sodium Level 136mmol/L (135-144) Potassium Level 4.2mmol/L (3.5-5.1) Chloride Level 101mmol/L (97-110) Carbon Dioxide Level 26mmol/L (21-31) Anion Gap 13 (8-16) Blood Urea Nitrogen 17mg/dl (7-20) Creatinine 0.80mg/dl (0.61-1.24) Glucose Level 181mg/dl (70-220) Calcium Level 8.7mg/dl (8.4-10.2) Phosphorus Level 4.4mg/dl (2.5-4.9) Magnesium Level 1.5mg/dl (1.7-2.5) L Test 12/07/16 17:40 Bedside Glucose 241mg/dL (70-220) H ECHOCARDIOGRAM Conclusions 1. Lower limits of normal systolic function. Normal left ventricular cavity size. Mild concentric left ventricular hypertrophy. Ejection fraction is visually estimated at 50 %. Tissue Doppler/Mitral Doppler indices are consistent with impaired relaxation (Stage I diastolic dysfunction). 2. Normal appearance and function of the mitral valve with trace physiologic regurgitation. 3. Normal appearance of the tricuspid valve. Estimated peak PA systolic pressure 27 mmHg. There is trace tricuspid regurgitation. Assessment : 1. Chest pain 2. ACS was ruled out. 3. Multiple risk factors for premature CAD. 4. Non specific symptoms. 5. Language barrier. Plan: Consider treadmill nuclear stress test if not recently done (I will order ). DONNY RODAS MD Consultation Date/Type/Reason Admit Date/Time Dec 05, 2016 at 06:41 Psychological: nl mood/affect Social History Smoking Status: Former smoker Exam/Review of Systems Vital Signs Vitals Vital Signs Date Time Temp Pulse Resp B/P Pulse Ox O2 Delivery O2 Flow Rate FiO2 12/07/16 17:09 98.0 78 18 119/76 98 12/06/16 11:12 Room Air Intake and Output 12/06/16 12/06/16 12/07/16 15:00 23:00 07:00 Intake Total 750 ml 500 ml Balance 750 ml 500 ml Results Result Diagram: 12/07/16 0655 12/07/16 0655 Results 24 hrs Laboratory Tests Test 12/06/16 21:52 12/07/16 02:15 12/07/16 06:55 12/07/16 07:39 Bedside Glucose 215 174 187 White Blood Count 6.5 Red Blood Count 4.06 L Hemoglobin 12.7 L Hematocrit 36.4 L Mean Corpuscular Volume 89.7 Mean Corpuscular Hemoglobin 31.3 Mean Corpuscular Hemoglobin Concent 34.9 Red Cell Distribution Width 12.4 Platelet Count 223 Mean Platelet Volume 11.5 H Neutrophils % 43.7 Lymphocytes % 37.5 Monocytes % 10.3 Eosinophils % 6.2 Basophils % 1.2 Nucleated Red Blood Cells % 0.0 Neutrophils # (Manual) 2.8 Lymphocytes # 2.4 Monocytes # 0.7 Eosinophils # 0.4 Basophils # 0.1 Nucleated Red Blood Cells # 0.0 Sodium Level 136 Potassium Level 4.2 Chloride Level 101 Carbon Dioxide Level 26 Anion Gap 13 Blood Urea Nitrogen 17 Creatinine 0.80 Glucose Level 181 Calcium Level 8.7 Phosphorus Level 4.4 Magnesium Level 1.5 L Test 12/07/16 12:09 12/07/16 17:40 Bedside Glucose 163 241 H Medications Medications Current Medications Carisoprodol (Soma) 350 mg QID PRN PO MUSCLE SPASMS; Start 12/05/16 at 11:00 Gabapentin (Neurontin) 300 mg TID PO Last administered on 12/07/16 12:10; Admin Dose 300 MG; Start 12/05/16 at 13:00 Lisinopril (Zestril) 10 mg DAILY PO Last administered on 12/07/16 08:21; Admin Dose 10 MG; Start 12/06/16 at 09:00 Ondansetron HCl (Zofran Inj) 4 mg Q6H PRN IV NAUSEA AND/OR VOMITING; Start 12/05 at 11:00 Acetaminophen (Tylenol Tab) 650 mg Q6H PRN PO PAIN LEVEL 1-3 OR FEVER; Start at 11:00 Acetaminophen (Tylenol Supp) 650 mg Q6H PRN MA PAIN LEVEL 1-3 OR FEVER; Start 12/05/16 at 11:00 Acetaminophen/ Hydrocodone Bitart ([place] (5/325)) 1 tab Q6H PRN PO MODERATE PAIN LEVEL 4-6; Start 12/05/16 at 11:00 Acetaminophen/ Hydrocodone Bitart ([place] (5/325)) 2 tab Q6H PRN PO SEVERE PAIN LEVEL 7-10; Start 12/05/16 at 11:00 Morphine Sulfate (morphine) 2 mg Q4H PRN IV SEVERE PAIN LEVEL 7-10 Last administered on 12/07/16 18:30; Admin Dose 2 MG; Start 12/05/16 at 11:00 Docusate Sodium (Colace) 100 mg Q12H PRN PO CONSTIPATION; Start 12/05/16 at 11: 00 Magnesium Hydroxide (Milk Of Mag) 30 ml DAILY PRN PO CONSTIPATION; Start at 11:00 Bisacodyl (Dulcolax Supp) 10 mg DAILY PRN MA CONSTIPATION; Start 12/05/16 at 11: 00 Insulin Glargine (Lantus) 15 unit DAILY@08 SC Last administered on 12/07/16 07: 43; Admin Dose 15 UNIT; Start 12/06/16 at 08:00 Metoprolol Tartrate (Lopressor) 12.5 mg BID PO Last administered on 12/07/16 08 :22; Admin Dose 12.5 MG; Start 12/05/16 at 21:00 Nitroglycerin (Nitroglycerin (Sl Tab) 0.4 Mg) 1 tab Q5M PRN SL CHEST PAIN; Start 12/05/16 at 11:00 Diagnostic Test (Pha) (Accu-Chek) 1 ea 02 XX Last administered on 12/07/16 02: 16; Admin Dose 1 EA; Start 12/06/16 at 02:00 Miscellaneous Information 1 ea NOTE XX ; Start 12/05/16 at 11:30 Glucose (Glutose) 15 gm Q15M PRN PO DECREASED GLUCOSE; Start 12/05/16 at 11:30 Glucose (Glutose) 22.5 gm Q15M PRN PO DECREASED GLUCOSE; Start 12/05/16 at 11:30 Dextrose (D50w Syringe) 25 ml Q15M PRN IV DECREASED GLUCOSE; Start 12/05/16 at 11:30 Dextrose (D50w Syringe) 50 ml Q15M PRN IV DECREASED GLUCOSE; Start 12/05/16 at 11:30 Glucagon (Glucagen) 1 mg Q15M PRN IM DECREASED GLUCOSE; Start 12/05/16 at 11:30 Glucose (Glutose) 15 gm Q15M PRN BUCCAL DECREASED GLUCOSE; Start 12/05/16 at 11: 30 Aspirin (Aspirin) 81 mg DAILY PO Last administered on 12/07/16 08:21; Admin Dose 81 MG; Start 12/05/16 at 12:40 Enoxaparin Sodium (Lovenox) 40 mg DAILY SC Last administered on 12/07/16 08:24 ; Admin Dose 40 MG; Start 12/07/16 at 09:00 Pantoprazole (Protonix Tab) 40 mg DAILY@06 PO ; Start 12/08/16 at 06:00 DONNY RODAS MD Dec 07, 2016 19:52
[2016-12-08] VITALS (12 sets, daily range): BP systolic 109–136; BP diastolic 62–85; PULSE 53–76; RESP 17–20
[2016-12-08] MEDS: ACCU-CHEK XX SCH (02:36)
[2016-12-08] MEDS: morphine 2 MG INJ IV PRN ×6 (02:38→23:42)
[2016-12-08] MEDS: PANTOPRAZOLE (EC) 40 MG TAB PO SCH (06:30)
[2016-12-08 07:45] LABS: BASOPHIL # 0.1 10^3/ul (0.0-0.1); BASOPHILS % 1.3 % (0.0-2.0); EOSINOPHILS # 0.3 10^3/ul (0.0-0.5); EOSINOPHILS % 5.6 % (0.0-7.0); HEMATOCRIT 36.2 % (42.0-52.0); HEMOGLOBIN 12.6 g/dl (14.0-18.0); LYMPHOCYTES # 2.5 10^3/ul (0.8-2.9); MEAN CORPUSCULAR HGB CONC 34.8 g/dl (32.0-37.0); MEAN CORPUSCULAR VOLUME 88.9 fl (82.0-101.0); MEAN PLATELET VOLUME 11.7 fl (7.4-10.4); MONOCYTE # 0.6 10^3/ul (0.3-0.9); MONOCYTES % 9.7 % (0.0-11.0); NEUTROPHILS % 41.4 % (39.0-77.0); PLATELET COUNT 207 10^3/UL (140-415); RED BLOOD COUNT 4.07 10^6/ul (4.70-6.10); RED CELL DISTRIBUTION WIDTH 12.6 % (11.5-14.5); WHITE BLOOD COUNT 6.1 10^3/ul (4.8-10.8)
[2016-12-08] MEDS: INSULIN ASPART [NOVOLOG] 3 ML PEN SC SCH ×7 (07:55→20:27)
[2016-12-08 08:08] LABS: MAGNESIUM 1.7 mg/dl (1.7-2.5); PHOSPHORUS 3.9 mg/dl (2.5-4.9)
[2016-12-08 08:09] LABS: CREATININE 0.82 mg/dl (0.61-1.24); POTASSIUM 4.2 mmol/L (3.5-5.1)
[2016-12-08 08:22] LABS: TROPONIN-I < 0.012 ng/ml (0.00-0.12)
[2016-12-08] MEDS: ASPIRIN 81 MG TAB PO SCH (08:25)
[2016-12-08] MEDS: GABAPENTIN 300 MG CAP PO SCH ×3 (08:25→20:21)
[2016-12-08] MEDS: METOPROLOL 25 MG TAB PO SCH ×2 (08:26→20:30)
[2016-12-08] MEDS: LISINOPRIL 10 MG TAB PO SCH (08:26)
[2016-12-08] MEDS: ENOXAPARIN 40 MG/0.4 ML SYG SC SCH (08:27)
[2016-12-08] MEDS: INSULIN GLARGINE [LANtus] 3 ML PEN SC SCH (08:29)
--- NOTE | 2016-12-08 16:39 | PN ---
Date/Time of Note Date/Time of Note DATE: 12/08/16 TIME: 16:37 Assessment/Plan VTE Prophylaxis VTE Prophylaxis Intervention: heparin Lines/Catheters IV [facility] Urinary Cath still in place: No Assessment/Plan Chief Complaint/Hosp Course 1. Chest pain. Most probably musculoskeletal origin from recent rib fracture. 2D echoardiogram showed an ejection fraction of 50%. Serial troponins have been negative. Cardiology following. The patient is scheduled for a nuclear medicine cardiac stress test. 2. Type 2 diabetes mellitus. Hemoglobin A1c 6.8. Continue sliding scale insulin. 3. Dyslipidemia. Low-cholesterol diet. 4. Hypertension. Continue antihypertensives. 5. Obesity. BMI of 34.8 kg/m. Weight reduction advised. 6. Left rib cage pain secondary to reported work-related injury that required multiple surgeries in the past. Continue pain control. 7. Fluids, electrolytes, and nutrition. Carbohydrate controlled, low- cholesterol diet. 8. DVT prophylaxis. Subcutaneous Lovenox. 9. Gastrointestinal prophylaxis. Proton pump inhibitors. 10. Plan. Serial troponins have been negative. Await cardiac stress test. Case discussed with Dr. Otero. Problems: Subjective 24 Hr Interval Summary Free Text/Dictation Continues to have left-sided rib cage pain. Exam/Review of Systems Vital Signs Vitals Vital Signs Date Time Temp Pulse Resp B/P Pulse Ox O2 Delivery O2 Flow Rate FiO2 12/08/16 16:00 63 12/08/16 15:50 98.1 18 133/85 96 12/06/16 11:12 Room Air Intake and Output 12/07/16 12/07/16 12/08/16 15:00 23:00 07:00 Intake Total 2050 ml 500 ml Output Total 1200 ml Balance 850 ml 500 ml Exam General: Adequately build 46 year-old male lying in bed in no apparent distress. HEENT: Normocephalic, atraumatic. Eyes: Anicteric sclerae, conjunctivae clear. ENT: Nasal septum midline, oral mucosa moist. Neck supple, no JVD noticed. Respiratory: Bilaterally clear breath sounds. No use of accessory muscles of respiration. No adventitious breath sounds. Cardiovascular: S1, S2 heard. No murmurs or gallops. Abdomen: Soft, nontender, and nondistended. Bowel sounds positive in all 4 quadrants. Genitourinary: Deferred. Extremities: No cyanosis, no clubbing, no edema. Peripheral pulses palpable. Neurologic: Cranial nerves II through XII grossly intact. The patient is awake, alert, and oriented. Skin: Normal skin turgor. No skin rashes. Results Result Diagram: 12/08/16 0647 12/08/16 0647 Results 24 hrs Laboratory Tests Test 12/07/16 17:40 12/07/16 21:59 12/08/16 02:35 12/08/16 06:47 Bedside Glucose 241 H 214 219 White Blood Count 6.1 Red Blood Count 4.07 L Hemoglobin 12.6 L Hematocrit 36.2 L Mean Corpuscular Volume 88.9 Mean Corpuscular Hemoglobin 31.0 Mean Corpuscular Hemoglobin Concent 34.8 Red Cell Distribution Width 12.6 Platelet Count 207 Mean Platelet Volume 11.7 H Neutrophils % 41.4 Lymphocytes % 41.0 Monocytes % 9.7 Eosinophils % 5.6 Basophils % 1.3 Nucleated Red Blood Cells % 0.0 Neutrophils # (Manual) 2.5 Lymphocytes # 2.5 Monocytes # 0.6 Eosinophils # 0.3 Basophils # 0.1 Nucleated Red Blood Cells # 0.0 Sodium Level 140 Potassium Level 4.2 Chloride Level 104 Carbon Dioxide Level 27 Anion Gap 13 Blood Urea Nitrogen 14 Creatinine 0.82 Glucose Level 164 Calcium Level 9.0 Phosphorus Level 3.9 Magnesium Level 1.7 Troponin I < 0.012 Test 12/08/16 08:21 12/08/16 12:15 Bedside Glucose 180 129 Medications Medications Current Medications Carisoprodol (Soma) 350 mg QID PRN PO MUSCLE SPASMS; Start 12/05/16 at 11:00 Gabapentin (Neurontin) 300 mg TID PO Last administered on 12/08/16 12:17; Admin Dose 300 MG; Start 12/05/16 at 13:00 Lisinopril (Zestril) 10 mg DAILY PO Last administered on 12/08/16 08:26; Admin Dose 10 MG; Start 12/06/16 at 09:00 Ondansetron HCl (Zofran Inj) 4 mg Q6H PRN IV NAUSEA AND/OR VOMITING; Start 12/05 at 11:00 Acetaminophen (Tylenol Tab) 650 mg Q6H PRN PO PAIN LEVEL 1-3 OR FEVER; Start at 11:00 Acetaminophen (Tylenol Supp) 650 mg Q6H PRN HI PAIN LEVEL 1-3 OR FEVER; Start 12/05/16 at 11:00 Acetaminophen/ Hydrocodone Bitart ([place] (5/325)) 1 tab Q6H PRN PO MODERATE PAIN LEVEL 4-6; Start 12/05/16 at 11:00 Acetaminophen/ Hydrocodone Bitart ([place] (5/325)) 2 tab Q6H PRN PO SEVERE PAIN LEVEL 7-10; Start 12/05/16 at 11:00 Morphine Sulfate (morphine) 2 mg Q4H PRN IV SEVERE PAIN LEVEL 7-10 Last administered on 12/08/16 15:36; Admin Dose 2 MG; Start 12/05/16 at 11:00 Docusate Sodium (Colace) 100 mg Q12H PRN PO CONSTIPATION; Start 12/05/16 at 11: 00 Magnesium Hydroxide (Milk Of Mag) 30 ml DAILY PRN PO CONSTIPATION; Start at 11:00 Bisacodyl (Dulcolax Supp) 10 mg DAILY PRN HI CONSTIPATION; Start 12/05/16 at 11: 00 Insulin Glargine (Lantus) 15 unit DAILY@08 SC Last administered on 12/08/16 08: 29; Admin Dose 15 UNIT; Start 12/06/16 at 08:00 Metoprolol Tartrate (Lopressor) 12.5 mg BID PO Last administered on 12/08/16 08 :26; Admin Dose 12.5 MG; Start 12/05/16 at 21:00 Nitroglycerin (Nitroglycerin (Sl Tab) 0.4 Mg) 1 tab Q5M PRN SL CHEST PAIN; Start 12/05/16 at 11:00 Diagnostic Test (Pha) (Accu-Chek) 1 ea 02 XX Last administered on 12/08/16 02: 36; Admin Dose 1 EA; Start 12/06/16 at 02:00 Miscellaneous Information 1 ea NOTE XX ; Start 12/05/16 at 11:30 Glucose (Glutose) 15 gm Q15M PRN PO DECREASED GLUCOSE; Start 12/05/16 at 11:30 Glucose (Glutose) 22.5 gm Q15M PRN PO DECREASED GLUCOSE; Start 12/05/16 at 11:30 Dextrose (D50w Syringe) 25 ml Q15M PRN IV DECREASED GLUCOSE; Start 12/05/16 at 11:30 Dextrose (D50w Syringe) 50 ml Q15M PRN IV DECREASED GLUCOSE; Start 12/05/16 at 11:30 Glucagon (Glucagen) 1 mg Q15M PRN IM DECREASED GLUCOSE; Start 12/05/16 at 11:30 Glucose (Glutose) 15 gm Q15M PRN BUCCAL DECREASED GLUCOSE; Start 12/05/16 at 11: 30 Aspirin (Aspirin) 81 mg DAILY PO Last administered on 12/08/16 08:25; Admin Dose 81 MG; Start 12/05/16 at 12:40 Enoxaparin Sodium (Lovenox) 40 mg DAILY SC Last administered on 12/08/16 08:27 ; Admin Dose 40 MG; Start 12/07/16 at 09:00 Pantoprazole (Protonix Tab) 40 mg DAILY@06 PO Last administered on 12/08/16 06: 30; Admin Dose 40 MG; Start 12/08/16 at 06:00 ERVIN RICE NP Dec 08, 2016 16:39
--- NOTE | 2016-12-08 19:04 | CONS ---
DATE OF ADMISSION: 12/05/2016 DATE OF CONSULTATION: 12/08/2016 REASON FOR CONSULTATION: Chest pain, assess for acute coronary syndrome. HISTORY OF PRESENT ILLNESS: Mr. Kinney is a 46-year-old male with history of hypertension, diabetes mellitus, prior rib fractures, who presents with complaints of left-sided substernal chest pain, worse with exertional activity, described as a tight and pressure-like feeling, ongoing for 3-4 days. Upon arrival at the emergency department, temperature 98.5, blood pressure 122/79, pulse 62, respiratory rate 20, O2 of 95 percent. The patient's labs, white blood count 6.5, hemoglobin 12.7, platelet count 223. Sodium 139, potassium 4.2, creatinine 0.89, BUN 20. Hemoglobin A1c of 6.8, LDL 90, HDL 26. TSH of 0.845. The patient underwent a chest x-ray revealing mild left basilar atelectasis. The patient's electrocardiogram revealed sinus bradycardia, rate 54, with normal axis, normal intervals, and incomplete right bundle branch block, secondary repolarization abnormalities. The patient was subsequently admitted to the floor and since admitted to the floor, has had negative troponins x3, ruling out acute myocardial infarction. The patient subsequently underwent a 2D echo revealing an EF of 50 percent with diastolic dysfunction, trace mitral and tricuspid regurgitation. The patient, at this time, continues to complain of chest pain. PAST MEDICAL HISTORY: As above in HPI. MEDICATION: Currently in the hospital 1. Protonix 40 mg daily. 2. Lovenox 100 subcu daily. 3. Zestril 10 mg daily. 4. Metoprolol 12.5 mg p.o. b.i.d. 5. Aspirin 81 mg daily. 6. Insulin sliding scale. ALLERGIES: NO KNOWN DRUG ALLERGIES. SOCIAL HISTORY: No tobacco. Social EtOH. No illicit drug use. FAMILY HISTORY: Negative for sudden cardiac or early CAD. REVIEW OF SYSTEMS: As above in HPI. CONSTITUTIONAL: No fevers, chills. RESPIRATORY: No current shortness of breath. CARDIOVASCULAR: Chest pain. GASTROINTESTINAL: No vomiting. GENITOURINARY: No hematuria. MUSCULOSKELETAL: Degenerative joint disease. PSYCH: The patient has depression. NEUROLOGIC: No CVA. PHYSICAL EXAMINATION: VITAL SIGNS: Temperature of 98.3, blood pressure 121/81, pulse 53, respiratory rate 18, sating 98 percent. GENERAL: The patient is alert, awake, complaining of chest pain. NECK: JVP approximately 8-9 cm of water. LUNGS: Fair air movement throughout. HEART: Regular rate and rhythm. Normal S1, S2. A 1/6 systolic murmur. Nondisplaced PMI. ABDOMEN: Positive bowel sounds. Soft. EXTREMITIES: No edema, 1+ pulses bilateral posterior and tibial. LABORATORY: As in [facility] with most recently from today, TSH 0.845, LDL 90, HDL 26, sodium 140, potassium 4.2, creatinine 0.82. Troponin negative x3. White blood cells 6.1, hemoglobin 12.6, platelet count 275,000. Imaging studies above in HPI. No further imaging studies are reviewed at this time. ECG as above in HPI. No further electrocardiograms are reviewed at this time. IMPRESSION: 1. Chest pain. Assess for acute coronary syndrome. 2. Abnormal electrocardiogram. Assess for acute coronary syndrome with negative troponins x3. 3. Hypertension. 4. Dyslipidemia. RECOMMENDATIONS: 1. At this time, the patient should be maintained on telemetry monitoring to follow rhythm and rates closely. 2. Continue the patient's current aspirin, beta lam, Zestril and will add low-dose oral nitrates. 3. Will follow the patient's heart rate closely on beta lam, given baseline bradycardia. 4. Patient is status post 2D echo revealing a preserved left ventricular ejection fraction. 5. I would check a repeat EKG to assess for significant changes and given the patient's ongoing chest pain and multiple cardiac risk factors, I believe this patient will benefit from a cardiac stress test, with that to be scheduled to take place in the morning. Thank you for allowing me to take part in the care of this patient. I will continue to follow him closely with you with recommendations made based on the patient's progress through the hospital course. Dictated By: Zion Bianchi MD /pramod/kendal /Document#: [id number] CC: Brent Nelson MD;*[facility]*
--- NOTE | 2016-12-08 19:16 | RADRPT ---
Vent Rate: 54 bpm RR Interval: 0 msec DE Interval: 136 msec QRS Duration: 100 msec QT Interval: 422 msec QTC Interval: 400 msec P-R-T Rohwer: 52 - 8 - 19 degrees Sinus bradycardia Otherwise normal ECG Electronically Signed By: Zion Bianchi [id number]
[2016-12-08] MEDS: HYDROCODONE/APAP (5/325) TAB PO PRN (22:28)
[2016-12-09] VITALS (8 sets, daily range): BP systolic 110–138; BP diastolic 58–91; PULSE 60–75; RESP 19
[2016-12-09] MEDS: ACCU-CHEK XX SCH (02:00)
[2016-12-09] MEDS: morphine 2 MG INJ IV PRN ×2 (03:45→08:58)
[2016-12-09] MEDS: PANTOPRAZOLE (EC) 40 MG TAB PO SCH (05:51)
[2016-12-09] MEDS: INSULIN ASPART [NOVOLOG] 3 ML PEN SC SCH ×4 (07:55→12:31)
[2016-12-09] MEDS: ASPIRIN 81 MG TAB PO SCH (08:24)
[2016-12-09] MEDS: LISINOPRIL 10 MG TAB PO SCH (08:25)
[2016-12-09] MEDS: GABAPENTIN 300 MG CAP PO SCH ×2 (08:25→12:24)
[2016-12-09] MEDS: METOPROLOL 25 MG TAB PO SCH (08:25)
[2016-12-09] MEDS: INSULIN GLARGINE [LANtus] 3 ML PEN SC SCH (08:30)
[2016-12-09] MEDS: ENOXAPARIN 40 MG/0.4 ML SYG SC SCH (08:36)
[2016-12-09] MEDS ORDERED: REGADENOSON 0.4 MG/5 ML SYG ONE (09:11)
--- NOTE | 2016-12-09 10:26 | CONS ---
Date/Time of Note Date/Time of Note DATE: 12/09/16 TIME: 10:23 Assessment/Plan Assessment/Plan Chief Complaint/Hosp Course IMPRESSION: 1. Chest pain. Assess for acute coronary syndrome. 2. Abnormal electrocardiogram. Assess for acute coronary syndrome with negative troponins x3. NL EF 50% by echo this admit 3. Hypertension. 4. Dyslipidemia. Recc: -Tele -serial ecg's -Continue low dose BB/asa -PRN SL NTG -Lexiscan stress test today Problems: Consultation Date/Type/Reason Admit Date/Time Dec 05, 2016 at 06:41 Initial Consult Date 12/08/2016 Type of Consultation: cardiology Reason for Consultation chest pain Referring Provider: BARBIE MARIA Exam/Review of Systems Vital Signs Vitals Vital Signs Date Time Temp Pulse Resp B/P Pulse Ox O2 Delivery O2 Flow Rate FiO2 12/09/16 08:42 75 12/09/16 07:57 98.1 19 123/82 97 12/06/16 11:12 Room Air Intake and Output 12/08/16 12/08/16 12/09/16 15:00 23:00 07:00 Intake Total 1200 ml 480 ml Balance 1200 ml 480 ml Exam Review of Systems: CONSTITUTIONAL: No fevers, chills. PULMONARY: No sob CARDIOVASCULAR: intermittent chest pain GASTROINTESTINAL: No nausea/vomiting. GENITOURINARY: No hematuria/dysuria. MUSCULOSKELETAL: No myagias/arthalgias. PSYCHIATRIC: The patient denies depression. NEUROLOGIC: No weakness Constitutional: alert Psych: no complaints ENMT: mucosa pink and moist Neck: jvd (8 cm water), supple Respiratory: clear to auscultation Cardiovascular: regular rate and rhythm Gastrointestinal: non-tender, soft Musculoskeletal: muscle tone (normal) Extremities: edema (none) Neurological: other (No focal deficits) Results Result Diagram: 12/08/16 0647 12/08/16 0647 Results 24 hrs Laboratory Tests Test 12/08/16 12:15 12/08/16 17:11 12/08/16 20:24 12/09/16 08:21 Bedside Glucose 129 250 H 132 158 Medications Medications Current Medications Carisoprodol (Soma) 350 mg QID PRN PO MUSCLE SPASMS; Start 12/05/16 at 11:00 Gabapentin (Neurontin) 300 mg TID PO Last administered on 12/09/16 08:25; Admin Dose 300 MG; Start 12/05/16 at 13:00 Lisinopril (Zestril) 10 mg DAILY PO Last administered on 12/09/16 08:25; Admin Dose 10 MG; Start 12/06/16 at 09:00 Ondansetron HCl (Zofran Inj) 4 mg Q6H PRN IV NAUSEA AND/OR VOMITING; Start 12/05 at 11:00 Acetaminophen (Tylenol Tab) 650 mg Q6H PRN PO PAIN LEVEL 1-3 OR FEVER; Start at 11:00 Acetaminophen (Tylenol Supp) 650 mg Q6H PRN TN PAIN LEVEL 1-3 OR FEVER; Start 12/05/16 at 11:00 Acetaminophen/ Hydrocodone Bitart ([place] (5/325)) 1 tab Q6H PRN PO MODERATE PAIN LEVEL 4-6; Start 12/05/16 at 11:00 Acetaminophen/ Hydrocodone Bitart ([place] (5/325)) 2 tab Q6H PRN PO SEVERE PAIN LEVEL 7-10 Last administered on 12/08/16 22:28; Admin Dose 2 TAB; Start 12/05/16 at 11:00 Morphine Sulfate (morphine) 2 mg Q4H PRN IV SEVERE PAIN LEVEL 7-10 Last administered on 12/09/16 08:58; Admin Dose 2 MG; Start 12/05/16 at 11:00 Docusate Sodium (Colace) 100 mg Q12H PRN PO CONSTIPATION; Start 12/05/16 at 11: 00 Magnesium Hydroxide (Milk Of Mag) 30 ml DAILY PRN PO CONSTIPATION; Start at 11:00 Bisacodyl (Dulcolax Supp) 10 mg DAILY PRN TN CONSTIPATION; Start 12/05/16 at 11: 00 Insulin Glargine (Lantus) 15 unit DAILY@08 SC Last administered on 12/09/16 08: 30; Admin Dose 15 UNIT; Start 12/06/16 at 08:00 Metoprolol Tartrate (Lopressor) 12.5 mg BID PO Last administered on 12/09/16 08 :25; Admin Dose 12.5 MG; Start 12/05/16 at 21:00 Nitroglycerin (Nitroglycerin (Sl Tab) 0.4 Mg) 1 tab Q5M PRN SL CHEST PAIN; Start 12/05/16 at 11:00 Diagnostic Test (Pha) (Accu-Chek) 1 ea 02 XX Last administered on 12/08/16 02: 36; Admin Dose 1 EA; Start 12/06/16 at 02:00 Miscellaneous Information 1 ea NOTE XX ; Start 12/05/16 at 11:30 Glucose (Glutose) 15 gm Q15M PRN PO DECREASED GLUCOSE; Start 12/05/16 at 11:30 Glucose (Glutose) 22.5 gm Q15M PRN PO DECREASED GLUCOSE; Start 12/05/16 at 11:30 Dextrose (D50w Syringe) 25 ml Q15M PRN IV DECREASED GLUCOSE; Start 12/05/16 at 11:30 Dextrose (D50w Syringe) 50 ml Q15M PRN IV DECREASED GLUCOSE; Start 12/05/16 at 11:30 Glucagon (Glucagen) 1 mg Q15M PRN IM DECREASED GLUCOSE; Start 12/05/16 at 11:30 Glucose (Glutose) 15 gm Q15M PRN BUCCAL DECREASED GLUCOSE; Start 12/05/16 at 11: 30 Aspirin (Aspirin) 81 mg DAILY PO Last administered on 12/09/16 08:24; Admin Dose 81 MG; Start 12/05/16 at 12:40 Enoxaparin Sodium (Lovenox) 40 mg DAILY SC Last administered on 12/09/16 08:36 ; Admin Dose 40 MG; Start 12/07/16 at 09:00 Pantoprazole (Protonix Tab) 40 mg DAILY@06 PO Last administered on 12/09/16 05: 51; Admin Dose 40 MG; Start 12/08/16 at 06:00 TRISTAN ATKINSON Dec 09, 2016 10:26
--- NOTE | 2016-12-09 11:23 | CARRPT ---
DATE OF PROCEDURE: 12/09/2016 TYPE OF PROCEDURE: Lexiscan cardiac stress test, electrocardiogram portion INDICATION: Chest pain, assess for ischemia. BASELINE VITAL SIGNS: Electrocardiogram: Pulse of 60, blood pressure 120/87. Electrocardiogram reveals normal sinus rhythm, rate of 60 with normal axis, normal intervals, and nonspecific ST- T wave abnormalities with inferior T-wave inversion. PROCEDURE: The patient underwent standard Lexiscan infusion protocol for 10 seconds, followed by radiolabeled tracer. Patient's test stopped due to completion of protocol. Maximal achieved blood pressure during the test 121/83. Maximal heart rate achieved during the test 82. ELECTROCARDIOGRAM FINDINGS: Patient did not develop any new Lexiscan-induced ST-T wave changes from baseline abnormalities. No documented PVCs. SYMPTOMS: The patient had no complaints of chest pain or shortness of breath during stress testing. IMPRESSION: 1. No Lexiscan-induced ST-T wave changes from baseline abnormalities that are suggestive but nondiagnostic for cardiac ischemia. 2. No complaints, chest pain, shortness of breath during stress testing. 3. No documented premature ventricular contractions during test. 4. Report of nuclear images to follow in separate dictation. Dictated By: Zion Bianchi MD /pramod/maite /Document#: [id number] ; Dr. Nelson, hospitalist service
--- NOTE | 2016-12-09 12:59 | RADRPT ---
PROCEDURE: LEXISCAN MYOCARDIAL PERFUSION STUDY CLINICAL INDICATION: 46 -year-old patient with chest pain. TECHNIQUE: Lexiscan 0.4 mg intravenously separate acquisition, gated myocardial perfusion SPECT us ing 31.2 mCi intravenously at stress and 10.1 mCi intravenously at rest was performed using the rest /stress sequence. Poststress SPECT images were obtained in the supine position. COMPARISON: No prior studies. FINDINGS: Perfusion images reveal no evidence of perfusion defects. Poststress gated SPECT images demonstrate no wall motion abnormalities. IMPRESSION: 1. No evidence of perfusion defects. 2. No wall motion abnormalities. 3. The left ventricle ejection fraction at stress is 48% . RPTAT: HH Physician Maida Date Time Electronically viewed and signed by Physician Maida on 12/09/2016 12:59 /
--- NOTE | 2016-12-09 13:13 | PDOCDIS ---
Discharge Instructions DIAGNOSIS Discharge Diagnosis Atypical chest pain. CONDITION Patient Condition: Stable HOME CARE INSTRUCTIONS: Special Diet: Carb controlled/Cardiac Diet OTHER ORDERS: Other Orders: 1. Take medications as per prescription for 2. Take a carbohydrate controlled diet. 3. Follow-up with your primary care physician in 1-2 weeks. 4. Resume activities as tolerated. ERVIN RICE NP Dec 09, 2016 13:13
[2016-12-09] MEDS ORDERED: SITA50TA2 PO (13:15)
[2016-12-09] MEDS: HYDROCODONE/APAP (5/325) TAB PO PRN (13:46)
--- NOTE | 2016-12-09 18:27 | DS ---
DATE OF ADMISSION: 12/05/2016 DATE OF DISCHARGE: 12/08/2016 FINAL DIAGNOSIS: 1. Atypical chest pain. Acute coronary syndrome ruled out. 2. Type 2 diabetes mellitus. 3. Dyslipidemia. 4. Essential hypertension. 5. Obesity. 6. Left ribcage pain secondary to reported work-related injury that required multiple surgeries in the past. 7. Obesity. 8. Normocytic normochromic anemia. CONSULTANTS: 1. Dr. Zion Bianchi, Cardiology. 2. Dr. Wander Cobb, Cardiology. HOSPITAL COURSE: This is a 45-year-old male with a past medical history of type 2 diabetes mellitus and essential hypertension, who came to [facility] [place] from an outside facility due to insurance reasons for further workup of chest pain. The patient verbalized chest pain as pressure-like pain and intense over his left chest wall with associated shortness of breath. The patient had a work-related injury a few months ago and had surgery for this issue. Since then, the patient has been having left-sided chest pain on and off. However, at this time, the patient's chest pain has been worse. Hence, he decided to go to the nearest emergency room. The patient was initially seen at [facility] where he was transferred to [facility] [place] for insurance reasons for further evaluation of his chest pain. The patient was admitted to inpatient telemetry floor. Serial troponins were obtained. A 2D echocardiogram was obtained. A cardiology consult was obtained. The patient's serial troponins remained negative. The patient's 2D echocardiogram showed an ejection fraction of 50 percent with stage I diastolic dysfunction. The patient underwent a nuclear medicine cardiac stress test that was negative for any reversible perfusion defects. The patient's chest pain was most probably musculoskeletal in origin because of the surgical intervention that had been done to the left chest wall from his work-related injury. The patient has underlying essential hypertension. The patient was maintained on antihypertensives for the same. He has underlying dyslipidemia. He was instructed on a low-cholesterol diet. The patient has underlying diabetes mellitus. The patient's hemoglobin A1c was found to be 6.8. The patient was maintained on sliding scale insulin with fairly well controlled blood sugars over the hospital course. The patient was seen by the wool presser during the hospital stay. The patient was noticed to have obesity with a BMI of 34.8 kg/m2. The patient was advised on weight reduction. The patient had a prolonged hospital course because of the delay in cardiology to see the patient because of unclear reasons that happened during the holiday weekend. Nevertheless, the patient was cleared by cardiology to be discharged home. DISCHARGE DISPOSITION/PLAN: The patient will be discharged home today. The patient was instructed to resume his home medications, but he was instructed to stop taking the glipizide and glyburide together. He was instructed to start taking metformin and sitagliptin. He was instructed to follow a carbohydrate controlled, preferably low-cholesterol diet. The patient was instructed to follow up with his primary care physician 1-2 weeks. He was instructed to resume activities as tolerated. The patient verbalized understanding of his discharge instructions. DISCHARGE CONDITION: Stable. DISCHARGE MEDICATIONS: 1. Sitagliptin 50 mg p.o. daily. 2. Carisoprodol 350 mg p.o. q.i.d. p.r.n. muscle spasms. 3. Gabapentin 300 mg p.o. t.i.d. 4. [place] 10/325, one tab p.o. q.i.d. p.r.n. pain. 5. Ketoralac 10 mg p.o. t.i.d. p.r.n. pain. 6. Lisinopril 10 mg p.o. daily. 7. Metformin 1000 mg p.o. with breakfast and dinner. PERTINENT LAB AND DIAGNOSTICS: 1. 2-D echocardiogram with an ejection fraction 50 percent. Stage I diastolic dysfunction. Estimated peak PA systolic pressure of 27 mmHg. There is trace tricuspid regurgitation. 2. Nuclear medicine cardiac stress test. No evidence of perfusion defects. No wall motion abnormalities. The left ventricular ejection fraction at stress is 48 percent. 3. Latest CBC: WBC 6.1, hemoglobin 12.6, hematocrit 36.2, platelet count 207. 4. Latest BMP: Sodium 140, potassium 4.2, chloride 104, carbon dioxide 20, anion gap 13, BUN 14, creatinine 0.8, glucose 164, calcium 9.2, phosphorus 3.9, magnesium 1.7. 5. Hemoglobin A1c 6.8. 6. Fasting lipid panel: Triglycerides 132, total cholesterol 142, LDL 90, HDL 26. At this time, I would like to thank all the consultants for seeing the patient, doing the necessary procedures, and providing clinical recommendations. The case and management of this patient was fully discussed with Dr. Holloway. Approximately 35 minutes were spent on coordinating the discharge on this patient. Dictated By: Minh Tellez NP /pramod/rebel /Document#: [id number] AYE
== END 2016-12-09 14:50 | disposition home or self-care (01) | DRG 313 ==
LOC: EDBD 06:41 → TEL 06:41
PROVIDERS: ADMIT Internal Medicine; ATTEND Internal Medicine
DX: R07.89 Other chest pain (principal); I10 Essential (primary) hypertension; E11.9 Type 2 diabetes mellitus without complications; E78.5 Hyperlipidemia, unspecified; D64.9 Anemia, unspecified; E66.9 Obesity, unspecified; Z68.34 Body mass index [BMI] 34.0-34.9, adult
CPT/HCPCS: 71010; 78452; 80048; 80053; 80061; 82550; 82553; 82962; 83036; 83735; 84100; 84436; 84443; 84479; 84484; 85025; 93005; 93017; 93306; A9500; A9505; C9113; J1650; J1815; J2270; J2785; J3010; J3475

== ENCOUNTER → 2016-12-14 | Outpatient (CLI) | payer OTHER ==
[~2016-12-14] VITALS: Ht 168.9 cm; Wt 96.4 kg
[~2016-12-14] MED LIST: CARI350T29 PO; GABA300C16 PO; HYDR-902 PO; KETO10TA PO; LISI10TA2 PO; METF1000 PO; SITA50TA2 PO
[2016-12-14 14:10] VITALS: BP 122/77; PULSE 85; RESP 18; Ht 168.9 cm; Wt 96.4 kg
--- NOTE | 2016-12-14 15:46 | PN ---
Date/Time of Note Date/Time of Note DATE: 12/14/16 TIME: 15:43 Outpatient Progress Note Chief Complaint Chest pain/diabetes/hyperlipidemia HPI Chest pain/patient was recently hospitalized with a chest pain, patient had initial workup done, patient was seen again on ER at [place], at present patient feels comfortable, no chest pain, no shortness of breath, Diabetes/no polydipsia polyuria hypoglycemia, no impaired vision, Hyperlipidemia/no xanthoma, on medication, no side effect, Review of Systems Const: No Fever, no chills, no Wt. loss, no Fatigue, normal appetite, no diaphoresis slightly obese,. Eyes: No pain, no discharge, no redness, no visual change, no foreign body. ENT: No pain, no bleeding, no congestion, no sore throat, no dysphagia, no discharge or rhinitis. Lymph: No adenopathy, no tender nodes, no lymphedema. Resp: No SOB, no cough, no sputum, no wheezing, no chest pain. CV: Occasional chest pain, no palpitaions, no KATZ, no PND, no edema. GI: Normal appetite, no pain, no nausea, no vomiting, no diarrhea, no blood, no constipation. : No frequency, no urgency, no dysuria, no hematuria, no flank pain, no discharge, no bleeding. Musc: No bone/joint pain, no back pain, no neck pain, no knee pain, no restricted ROM. Skin: No rash, no skin lesions, no erythema, no laceration, no bruising, no pruritus. Neuro: No BRISENO, no dizziness, no syncope, no seizure, no focal-weakness. Endo: No polyuria, no polydypsia, no dry-skin, no temp-intolerance. Psych: No hallucinations, no depression, no anxiety, no suicidal ideation. Ext: No edema, no pain, no ulcer, no weakness. Physical Exam Vital Signs Date Time Temp Pulse Resp B/P Pulse Ox O2 Delivery O2 Flow Rate FiO2 12/14/16 14:10 98.1 85 18 122/77 98 Room Air General Appearance: A 46 year-old male who appears well-developed, well- nourished, in no acute distress. HEENT: Head normocephalic, atraumatic. Pupils equal, round, reactive to light and accommodate. Sclerae are no jaundice. Nasal turbinates pink without erythema or nasal discharge. Mucous membranes pink and moist without lesions. Oropharynx clear without any exudate or discharge. NECK: Supple. Trachea midline, No thyromegaly, No cervical lymphadenopathy, No mass, No carotid bruits, No JVD, Carotid pulses 2+ bilaterally. PULMONARY: Clear to auscultaion bilaterally, No retractions, Chest expansion symmetric bilaterally, no rales, no ronchi, no dulness on percussion. CARDIAC: Normal SI and S2, Regular rate and rythm, no murmur, gallop, or rub. GASTROINTESTINAL: Abdomen is soft, non-tender, Non Rigid, No distention, Positive bowel sounds x4 quadrants, Liver normal. SKIN: Warm, dry, no rash, no bruise, no echmosis. EXTREMITIES: Bilateral lower extremities normal, no edema, no phlabitus, pulse palpable, no contracture. MUSCULOSKELETAL: Spine Normal, Non-tender, Normal range of motion, No swelling, no deformity, no clubbing, or cyanosis, the patient has no edema to bilateral lower extremities, dorsalis pedis pulses palpable bilaterally. NEUROLOGIC: The patient is awake, alert, oriented, responding to yes/no questions appropriately, moving all extremities, cranial nerve intact, normal strenght, normal power, normal coordination, normal gait. Allergies Coded Allergies: No Known Allergy (Unverified , 12/05/16) PMH Chest pain/diabetes/hyperlipidemia/anxiety Social Hx No smoking no drinking, Family Hx Noncontributory Patient History: FH: cancer 32 MOTHER, , Onset:60 years & older FH: diabetes mellitus G8 SIBLING, Onset:Unknown Hypertension G8 [place], Onset:Unknown Assessment/Plan Impression Chest pain resolved Diabetes Hyperlipidemia Plan Patient education done about diabetes and chest pain, patient very anxious and nervous, patient was seen in emergency room at [place] after the discharge, Patient high risk for repeated admission, and repeat visit to ER, discussed about anxiety and how to take care of it, Patient encouraged to follow with the primary care physician, Patient is not taking baby aspirin, patient encouraged to take one baby aspirin 81 mg daily, Patient has all the medication, patient will be seen in couple of weeks, patient to follow with the primary care physician, Medications Home Meds Active Scripts Sitagliptin* (Januvia*) 50 Mg Tablet, 50 MG PO DAILY, #30 TAB Prov:ERVIN RICE 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 12/09/16 Reported Medications Carisoprodol* (Carisoprodol*) 350 Mg Tablet, 350 MG PO QID Y for MUSCLE SPASMS, TAB 12/05/16 Lisinopril* (Lisinopril*) 10 Mg Tablet, 10 MG PO DAILY, #30 TAB 12/05/16 Hydrocodone/Acetaminophen ([place] 10-325 Tablet) 1 Each Tablet, 1 EACH PO QID Y for PAIN, TAB 12/05/16 Metformin Hcl* (Metformin Hcl*) 1,000 Mg Tablet, 1000 MG PO WITH BREAKFAST DINNE , #30 TAB 12/05/16 Ketorolac Tromethamine* (Ketorolac Tromethamine*) 10 Mg Tablet, 10 MG PO TID Y for PAIN, TAB 12/05/16 Gabapentin* (Gabapentin*) 300 Mg Capsule, 300 MG PO TID, #90 CAP 12/05/16 Discontinued Reported Medications Glimepiride* (Glimepiride*) 4 Mg Tablet, 4 MG PO WITH BREAKFAST, TAB 12/05/16 Amoxicillin* (Amoxicillin*) 500 Mg Cap, 500 MG PO TID, #20 CAP 12/05/16 Glipizide* (Glipizide*) 5 Mg Tablet, 5 MG PO DAILY, TAB 12/05/16 MINNA RICH MD Dec 14, 2016 15:46
== END | disposition home or self-care (01) ==
LOC: DCC 14:11
PROVIDERS: ATTEND Internal Medicine
DX: R07.9 Chest pain, unspecified (principal); E11.9 Type 2 diabetes mellitus without complications; Z79.84 Long term (current) use of oral hypoglycemic drugs; E78.5 Hyperlipidemia, unspecified; F41.9 Anxiety disorder, unspecified

== ENCOUNTER → 2016-12-29 | Outpatient (CLI) | payer OTHER | END | disposition home or self-care (01) | LOC: DIB 10:00 | PROVIDERS: ATTEND Emergency Medicine | DX: Z02.9 Encounter for administrative examinations, unspecified (principal) ==

== ENCOUNTER 2018-07-17 02:24 | Inpatient (IN) | payer OTHER ==
[~2018-07-17] VITALS: Ht 170.2 cm; Wt 90.2 kg
[~2018-07-17 02:24] MED LIST changes: +HYDR-3980 PO; -HYDR-902 PO; -METF1000 PO; +METF100010 PO
[2018-07-17 04:15] VITALS: BP 106/61; PULSE 64; RESP 18
[2018-07-17 04:30] VITALS: BP 106/61; PULSE 64; RESP 18; Ht 170.2 cm; Wt 90.2 kg
[2018-07-17] MEDS ORDERED: NACL 0.9% 3 ML SYG IV SCH (06:00)
[2018-07-17] MEDS ORDERED: ONDANSETRON 4 MG INJ IV PRN (06:00)
[2018-07-17] MEDS: SOD CHLORIDE 0.9% 1,000 ML IV SCH ×3 (06:13→17:24)
[2018-07-17] MEDS: ACETAMINOPHEN 325 MG TAB PO PRN ×2 (06:14→15:39)
--- NOTE | 2018-07-17 06:19 | HP ---
Date/Time of Note Date/Time of Note DATE: 07/17/18 TIME: 06:14 Assessment/Plan VTE Prophylaxis Pharmacological prophylaxis: heparin Lines/Catheters IV Catheter Type (from Nrs): Saline Lock Urinary Cath still in place: No Assessment/Plan Hospital Course 1. Acute renal insufficiency: Secondary to intractable vomiting -IV fluid -Urine electrolytes -Check CK given myalgia -Renal ultrasound and nephrology consult as needed 2. LLQ abd Pain -f/u imaging 3. Hypertension: BP is in acceptable range 4. Diabetes: Check A1c -Insulin while in-house HPI/ROS Admit Date/Time Admit Date/Time Jul 17, 2018 at 04:45 Hx of Present Illness This is a 47-year-old male with a history of hypertension, diabetes, dyslipidemia who initially presented on outside hospital complaining of vomiting and LLQ abdominal pain. He said he ate shrimp tacos and shortly after he vomited multiple times. He also complains of muscle ache in left shoulder/upper back area. Emesis described as nonbloody nonbilious. He is a creatinine was found to be 2.52 baseline of around 0.9. Patient was transferred to [facility] for insurance reasons. PMH/Family/Social Past Medical History Medical History: diabetes, high cholesterol, hypertension Medications Current Medications Sodium Chloride 1,000 ml @ 125 mls/hr Q8H IV ; Start 07/17/18 at 05:40 IV Flush (NS 3 ml) 3 ml PER PROTOCOL IV ; Start 07/17/18 at 06:00 Ondansetron HCl (Zofran Inj) 4 mg Q6H PRN IV NAUSEA/VOMITING; Start 07/17/18 at 06:00 Acetaminophen (Tylenol Tab) 650 mg Q6H PRN PO .PAIN 1-3 OR TEMP; Start 07/17/18 at 06:00 Heparin Sodium (Porcine) (Heparin (5000 Units/1ml)) 5,000 unit Q12 SC ; Start 07/17/18 at 09:00 Coded Allergies: No Known Allergy (Unverified , 12/05/16) Past Surgical History Past Surgical Hx: other (See HPI) Family History Significant Family History: no pertinent family hx Social History Alcohol Use: none Smoking Status: Never smoker Drug Use: none Exam/Review of Systems Vital Signs Vitals Vital Signs Date Temp Pulse Resp B/P (MAP) Pulse Ox O2 O2 Flow FiO2 Time Delivery Rate 07/17/18 97.6 64 18 106/61 100 Room Air 04:30 (76) Exam Constitutional: alert, oriented, well developed Head: normocephalic, atraumatic Eyes: EOMI, PERRL Respiratory: clear to auscultation, normal air movement Cardiovascular: regular rate and rhythm Gastrointestinal: soft Extremities: normal pulses CARMEN DAVIS MD Jul 17, 2018 06:19
[2018-07-17 07:57] VITALS: BP 103/57; PULSE 67; RESP 19
[2018-07-17] MEDS: HEPARIN 5,000 UNIT/1 ML VIAL SC SCH ×2 (09:01→20:38)
--- NOTE | 2018-07-17 09:43 | PN ---
Date/Time of Note Date/Time of Note DATE: 07/17/18 TIME: 09:40 Assessment/Plan VTE Prophylaxis Pharmacological prophylaxis: heparin Lines/Catheters IV Catheter Type (from [facility]): Saline Lock Urinary Cath still in place: No Assessment/Plan Hospital Course SUBJECTIVE: Complains of left lower quadrant pain and left shoulder pain. OBJECTIVE: Physical Exam General: Obese, 47 year-old male lying in bed in no apparent distress. HEENT: Normocephalic, atraumatic. Eyes: Anicteric sclerae, conjunctivae clear. ENT: Nasal septum midline, oral mucosa moist. Neck supple, no JVD noticed. Respiratory: Bilaterally clear breath sounds. No use of accessory muscles of respiration. No adventitious breath sounds. Cardiovascular: S1, S2 heard. Regular rate and rhythm. Surgical scar/keloid on the left chest wall under the nipple. Abdomen: Soft and nondistended. Left lower quadrant tenderness. Bowel sounds positive in all 4 quadrants. Genitourinary: Deferred. Extremities: No cyanosis, no clubbing, no edema. Peripheral pulses palpable. Neurologic: Cranial nerves II through XII grossly intact. The patient is awake, alert, and oriented. Skin: Normal skin turgor. No skin rashes. Labs & Vitals per chart ASSESSMENT & PLAN This is a 47-year-old male with past medical history of hypertension, diabetes mellitus type 2, dyslipidemia, chronic back pain, and obesity. The patient presented to an outside facility complaining of vomiting and left lower quadrant abdominal pain precipitated by eating shrimp tacos. The patient was noted to have a creatinine of 2.52. The patient was transferred to [facility] for further evaluation because of insurance reasons. 1. Acute kidney injury. -Most probably secondary to prerenal causes. -Continue IV hydration. -Avoid nephrotoxic medications. -Renal ultrasound negative for any acute findings. 2. Abdominal pain. -Etiology unclear. -Pending CT abdomen and pelvis. -Most probably secondary to underlying food poisoning. 3. Diabetes mellitus type 2. -Hold biguanides. -Start the patient on sliding scale insulin along with pre-meal insulin and basal insulin. 4. Hypertension. -Hold MARCUS inhibitors. -Start the patient on PRN antihypertensives. 5. Dyslipidemia. -Fasting lipid panel satisfactory except low HDL. 6. Obesity. -BMI more than 31 kg/m. -Weight reduction advised. 7. Chronic back pain. -Continue pain control. 8. Fluids, electrolytes, and nutrition. -Carbohydrate controlled diet. 9. DVT prophylaxis. -Subcutaneous heparin. 10. Plan. -Continue IV hydration. -Hold nephrotoxic medications. -Await results of abdominal CT scan. The patient was seen in collaboration with Dr. Otero. Result Diagram: 07/17/18 0612 07/17/18 0612 Results 24hrs Laboratory Tests Test 07/17/18 06:12 07/17/18 06:13 White Blood Count 9.1 # Red Blood Count 3.91 L Hemoglobin 12.3 L Hematocrit 35.2 L Mean Corpuscular Volume 90.0 Mean Corpuscular Hemoglobin 31.5 Mean Corpuscular Hemoglobin Concent 34.9 Red Cell Distribution Width 12.6 Platelet Count 208 Mean Platelet Volume 10.8 H Immature Granulocytes % 0.800 H Neutrophils % 54.6 Lymphocytes % 35.2 Monocytes % 7.1 Eosinophils % 1.4 Basophils % 0.9 Nucleated Red Blood Cells % 0.0 Immature Granulocytes # 0.070 H Neutrophils # 5.0 Lymphocytes # 3.2 H Monocytes # 0.6 Eosinophils # 0.1 Basophils # 0.1 Nucleated Red Blood Cells # 0.0 Sodium Level 141 Potassium Level 4.2 Chloride Level 104 Carbon Dioxide Level 25 Anion Gap 12 Blood Urea Nitrogen 41 H Creatinine 1.90 H Est Glomerular Filtrat Rate mL/min 38 L Glucose Level 125 Calcium Level 8.6 Phosphorus Level 4.9 Magnesium Level 1.5 L Total Bilirubin 0.8 Direct Bilirubin 0.00 Indirect Bilirubin 0.8 Aspartate Amino Transf (AST/SGOT) 26 Alanine Aminotransferase (ALT/SGPT) 34 Alkaline Phosphatase 50 Total Protein 7.3 Albumin 3.8 Globulin 3.50 H Albumin/Globulin Ratio 1.08 Triglycerides Level 146 Cholesterol Level 131 LDL Cholesterol, Calculated 77 HDL Cholesterol 25 L Cholesterol/HDL Ratio 5.2 Creatine Kinase 275 H Exam/Review of Systems Exam Vitals Vital Signs Date Temp Pulse Resp B/P (MAP) Pulse Ox O2 O2 Flow FiO2 Time Delivery Rate 07/17/18 98.4 67 19 103/57 97 Room Air 07:57 (72) Results Results 24hrs Laboratory Tests Test 07/17/18 06:12 07/17/18 06:13 White Blood Count 9.1 # Red Blood Count 3.91 L Hemoglobin 12.3 L Hematocrit 35.2 L Mean Corpuscular Volume 90.0 Mean Corpuscular Hemoglobin 31.5 Mean Corpuscular Hemoglobin Concent 34.9 Red Cell Distribution Width 12.6 Platelet Count 208 Mean Platelet Volume 10.8 H Immature Granulocytes % 0.800 H Neutrophils % 54.6 Lymphocytes % 35.2 Monocytes % 7.1 Eosinophils % 1.4 Basophils % 0.9 Nucleated Red Blood Cells % 0.0 Immature Granulocytes # 0.070 H Neutrophils # 5.0 Lymphocytes # 3.2 H Monocytes # 0.6 Eosinophils # 0.1 Basophils # 0.1 Nucleated Red Blood Cells # 0.0 Sodium Level 141 Potassium Level 4.2 Chloride Level 104 Carbon Dioxide Level 25 Anion Gap 12 Blood Urea Nitrogen 41 H Creatinine 1.90 H Est Glomerular Filtrat Rate mL/min 38 L Glucose Level 125 Calcium Level 8.6 Phosphorus Level 4.9 Magnesium Level 1.5 L Total Bilirubin 0.8 Direct Bilirubin 0.00 Indirect Bilirubin 0.8 Aspartate Amino Transf (AST/SGOT) 26 Alanine Aminotransferase (ALT/SGPT) 34 Alkaline Phosphatase 50 Total Protein 7.3 Albumin 3.8 Globulin 3.50 H Albumin/Globulin Ratio 1.08 Triglycerides Level 146 Cholesterol Level 131 LDL Cholesterol, Calculated 77 HDL Cholesterol 25 L Cholesterol/HDL Ratio 5.2 Creatine Kinase 275 H Medications Medication Current Medications Sodium Chloride 1,000 ml @ 125 mls/hr Q8H IV Last administered on 07/17/18at 06:13; Admin Dose 125 MLS/HR; Start 07/17/18 at 05:40 IV Flush (NS 3 ml) 3 ml PER PROTOCOL IV ; Start 07/17/18 at 06:00 Ondansetron HCl (Zofran Inj) 4 mg Q6H PRN IV NAUSEA/VOMITING; Start 07/17/18 at 06:00 Acetaminophen (Tylenol Tab) 650 mg Q6H PRN PO .PAIN 1-3 OR TEMP Last administer ed on 07/17/18at 06:14; Admin Dose 650 MG; Start 07/17/18 at 06:00 Heparin Sodium (Porcine) (Heparin (5000 Units/1ml)) 5,000 unit Q12 SC Last administered on 07/17/18at 09:01; Admin Dose 5,000 UNIT; Start 07/17/18 at 09:00 ERVIN RICE NP Jul 17, 2018 09:43
[2018-07-17] MEDS ORDERED: DEXTROSE 50% 50 ML SYRINGE IV PRN ×2 (10:00)
[2018-07-17] MEDS ORDERED: GLUCOSE GEL 15 GRAM TUBE BUCCAL PRN (10:00)
[2018-07-17] MEDS ORDERED: hydrALAzine 20 MG INJ IV PRN (10:00)
[2018-07-17] MEDS ORDERED: HYDROCODONE/APAP (5/325) TAB PO PRN (10:00)
[2018-07-17] MEDS ORDERED: GLUCOSE GEL 15 GRAM TUBE PO PRN ×2 (10:00)
[2018-07-17] MEDS ORDERED: GLUCAGON 1 MG INJ IM PRN (10:00)
[2018-07-17] MEDS ORDERED: MAGNESIUM SULFATE 2 GM/50 ML 50 ML IVPB ONE (10:30)
[2018-07-17] MEDS: INSULIN ASPART [NOVOLOG] 3 ML PEN SC SCH ×5 (12:40→20:39)
[2018-07-17 14:26] VITALS: BP 112/58; PULSE 61; RESP 19
[2018-07-17 14:37] VITALS: BP 113/65; PULSE 71; RESP 18
[2018-07-17] MEDS: oxyCODONE (CR) 20 MG TAB [oxyCONTIN] PO SCH (20:36)
[2018-07-17 21:03] VITALS: BP 118/65; PULSE 74; RESP 18
[2018-07-18] MEDS: SOD CHLORIDE 0.9% 1,000 ML IV SCH (01:33)
[2018-07-18] MEDS ORDERED: ACCUCHECK AT 2AM (Patients on SS coverage) XX SCH (02:00)
[2018-07-18 02:01] VITALS: BP 106/60; PULSE 65; RESP 18
[2018-07-18 07:27] VITALS: BP 121/75; PULSE 63; RESP 19
[2018-07-18] MEDS: oxyCODONE (CR) 20 MG TAB [oxyCONTIN] PO SCH (08:10)
[2018-07-18] MEDS: HEPARIN 5,000 UNIT/1 ML VIAL SC SCH (08:15)
[2018-07-18] MEDS: INSULIN ASPART [NOVOLOG] 3 ML PEN SC SCH ×4 (08:16→12:40)
--- NOTE | 2018-07-18 11:55 | PDOCDIS ---
Discharge Instructions CONDITION [id number] Patient Condition: [id number] Stable OTHER ORDERS: Other Orders: 1. Resume home medications. 2. Take a low-cholesterol, carbohydrate controlled diet as tolerated 3. Follow-up with your primary care physician in 2 weeks. 4. Resume activities as tolerated. 5. Please go to the nearest emergency room if you continue to have abdominal pain, persistent nausea/vomiting, or any other unusual signs/symptoms. ERVIN RICE NP Jul 18, 2018 11:55
--- NOTE | 2018-07-18 12:10 | DS ---
Date/Time of Note Date/Time of Note DATE: 07/18/18 TIME: 12:08 Discharge Summary Admission/Discharge Info Admit Date/Time Jul 17, 2018 at 04:45 Discharge Date/Time Discharge Diagnosis 1. Acute kidney injury. 2. Abdominal pain. 3. Diabetes mellitus type 2. A1C 7.8. 4. Hypertension. 5. Dyslipidemia. 6. Obesity. BMI more than 31 kg/m. 7. Chronic back pain. Patient Condition: Stable Procedures CT Abdomen & Pelvis IMPRESSION: Nonspecific mild bilateral perinephric stranding. Correlate with urinalysis. Otherwise, no CT evidence of mass, lymphadenopathy, or acute inflammatory changes. Hepatic steatosis. Renal Ultrasound IMPRESSION: 1. Unremarkable renal ultrasound. Hx of Present Illness This is a 47-year-old male with past medical history of hypertension, diabetes mellitus type 2, dyslipidemia, chronic back pain, and obesity. The patient presented to an outside facility complaining of vomiting and left lower quadrant abdominal pain precipitated by eating shrimp tacos. The patient was noted to have a creatinine of 2.52. The patient was transferred to [facility] for further evaluation because of insurance reasons. Hospital Course The patient was admitted to inpatient setting. Etiology of the patient's acute kidney injury could have been most probably secondary to prerenal causes from dehydration from persistent vomiting. The patient's kidney injury responded well to hydration therapy. All the nephrotoxic drugs including MARCUS inhibitors and metformin were put on hold. The patient's renal ultrasound was unr emarkable. On the day of discharge, the patient's renal function has been normalized. Regarding the patient's abdominal pain, the etiology remains unclear. The patient could have some food poisoning. The patient's CT scan of the abdomen and pelvis was negative except for some nonspecific bilateral perinephric stranding that was mild. Nevertheless, the patient's renal ultrasound was negative for any hydronephrosis. It is unclear, whether the patient has underlying diabetic gastroparesis. The patient's abdominal pain resolved over the course of his hospital stay. The patient has underlying chronic back pain. The patient was maintained on appropriate analgesics. The patient has underlying diabetes mellitus type 2. The patient's hemoglobin A1c was found to be 7.8. The patient's oral agents were put on hold during hospitalization. He was maintained on sliding scale insulin along with pre-meal insulin and basal insulin. The patient has a history of hypertension. The patient's MARCUS inhibitors were put on hold because of underlying acute kidney injury. He was on PRN antihypertensives. The patient's blood pressure trends were good off antihypertensives throughout the hospital course. The patient has a history of dyslipidemia. The patient's fasting lipid panel was satisfactory except for low HDL. The patient is obese with a BMI of more than 31 kg/m. The patient was advised on weight reduction. The patient has chronic back pain as mentioned before. The patient reportedly was taking oxycodone at home for this. Nevertheless, the patient's urine drug screen was negative for any opioids and it was positive for amphetamines. The patient denied any history of drug abuse. The patient had a stable hospital course. The patient's abdominal pain has resolved. The patient's renal function has normalized. The patient is stable for outpatient follow-up. Discharge Instructions 1. Resume home medications. 2. Take a low-cholesterol, carbohydrate controlled diet as tolerated 3. Follow-up with your primary care physician in 2 weeks. 4. Resume activities as tolerated. 5. Please go to the nearest emergency room if you continue to have abdominal pain, persistent nausea/vomiting, or any other unusual signs/symptoms. The patient verbalized understanding of his discharge instructions. The patient was seen in collaboration with Dr. Otero. Home Meds Active Scripts Sitagliptin* (Januvia*) 50 Mg Tablet, 50 MG PO DAILY, #30 TAB Prov:ERVIN RICE BILLING ASSISTANT 12/09/16 Reported Medications Carisoprodol* (Carisoprodol*) 350 Mg Tablet, 350 MG PO QID PRN for MUSCLE SPASMS, TAB 12/05/16 Lisinopril* (Lisinopril*) 10 Mg Tablet, 10 MG PO DAILY, #30 TAB 12/05/16 Hydrocodone/Acetaminophen ([place] 10-325 Tablet) 1 Each Tablet, 1 EACH PO QID PRN for PAIN, TAB 12/05/16 Metformin Hcl* (Metformin Hcl*) 1,000 Mg Tablet, 1000 MG PO WITH BREAKFAST DINNE, #30 TAB 12/05/16 Gabapentin* (Gabapentin*) 300 Mg Capsule, 300 MG PO TID, #90 CAP 12/05/16 Discontinued Reported Medications Ketorolac Tromethamine* (Ketorolac Tromethamine*) 10 Mg Tablet, 10 MG PO TID PRN for PAIN, TAB 12/05/16 Follow-up Plan The patient to follow-up with his primary care physician in 2 weeks. Primary Care Provider Care Physician No Primary Time spent on discharge: > 30 minutes Pending Labs Laboratory Tests Test 07/17/18 12:31 07/17/18 14:20 07/17/18 17:38 07/17/18 20:33 Bedside 121 276 193 Glucose mg/dL (70-220) mg/dL (70-220) mg/dL (70-220) Urine Random 84 Sodium mmol/L (30-90) Urine Random 41.4 Potassium mmol/L (25-125 ) Urine Opiates Negative (NEGA Screen TIVE) Urine Negative (NEGA Barbiturates TIVE) Urine POSITIVE (NEGA Amphetamines TIVE) Screen Urine Negative (NEGA Benzodiazepines TIVE) Screen Urine Cocaine Negative (NEGA Screen TIVE) Urine Negative (NEGA Cannabinoids TIVE) Test 07/18/18 01:32 07/18/18 04:25 07/18/18 08:12 Bedside 245 164 Glucose mg/dL (70-220) mg/dL (70-220) White Blood 6.1 Count 10^3/ul (4.8-1 0.8) Red Blood 3.71 Count 10^6/ul (4.70- 6.10) Hemoglobin 11.5 g/dl (14.0-18. 0) Hematocrit 33.4 % (42.0-52.0) Mean 90.0 Corpuscular fl (82.0-101.0 Volume ) Mean 31.0 Corpuscular pg (29.0-33.0) Hemoglobin Mean 34.4 Corpuscular g/dl (32.0-37. Hemoglobin Conc 0) ent Red Cell 12.5 Distribution % (11.5-14.5) Width Platelet Count 197 10^3/UL (140-4 15) Mean Platelet 11.8 Volume fl (7.4-10.4) Immature 0.500 Granulocytes % % (0.001-0.429 ) Neutrophils % 33.4 % (39.0-77.0) Lymphocytes % 54.0 % (15.0-51.0) Monocytes % 7.4 % (0.0-11.0) Eosinophils % 3.6 % (0.0-7.0) Basophils % 1.1 % (0.0-2.0) Nucleated Red 0.0 Blood Cells % /100WBC (0.0-0 .0) Immature 0.030 Granulocytes # 10^3/ul (0.0-0 .031) Neutrophils # 2.0 10^3/ul (1.6-7 .5) Lymphocytes # 3.3 10^3/ul (0.8-2 .9) Monocytes # 0.5 10^3/ul (0.3-0 .9) Eosinophils # 0.2 10^3/ul (0.0-0 .5) Basophils # 0.1 10^3/ul (0.0-0 .1) Nucleated Red 0.0 Blood Cells # 10^3/ul (0.0-0 .0) Sodium Level 140 mmol/L (135-14 4) Potassium 4.5 Level mmol/L (3.5-5. 1) Chloride Level 108 mmol/L (97-110 ) Carbon Dioxide 26 Level mmol/L (21-31) Anion Gap 6 (5-13) Blood Urea 17 Nitrogen mg/dl (7-20) Creatinine 0.85 mg/dl (0.61-1. 24) Est Glomerular > 60 Filtrat mL/min (>60) Rate mL/min Glucose Level 177 mg/dl (70-220) Calcium Level 8.4 mg/dl (8.4-10. 2) Phosphorus 2.9 Level mg/dl (2.5-4.9 ) Magnesium 1.7 Level mg/dl (1.7-2.5 ) ERVIN RICE NP Jul 18, 2018 12:10
[2018-07-18 14:06] VITALS: BP 141/92; PULSE 61; RESP 20
== END 2018-07-18 14:44 | disposition home or self-care (01) | DRG 684 ==
LOC: MS1 04:45
PROVIDERS: ADMIT Internal Medicine; ATTEND Internal Medicine
DX: N17.9 Acute kidney failure, unspecified (principal); E11.9 Type 2 diabetes mellitus without complications; I10 Essential (primary) hypertension; E78.5 Hyperlipidemia, unspecified; R10.9 Unspecified abdominal pain; E66.9 Obesity, unspecified; M54.9 Dorsalgia, unspecified; G89.29 Other chronic pain; Z68.31 Body mass index [BMI] 31.0-31.9, adult
CPT/HCPCS: 74176; 76775; 80048; 80053; 80061; 80307; 82436; 82550; 82962; 83036; 83735; 84100; 84133; 84300; 85025; J1644; J1815; J3475; J7030